=== PATIENT | male | born 1955 | race Caucasian/White ===

== ENCOUNTER 2017-04-09 18:31 | Inpatient (IN) | payer SELFPAY ==
[~2017-04-09] VITALS: Ht 188 cm; Wt 146.6 kg
[2017-04-09] MEDS ORDERED: ACETAMINOPHEN 500 MG TAB PO STA (18:40)
[2017-04-09] MEDS ORDERED: SODIUM CHLORIDE 0.9% 1000ML 2,000 ML IV STA (18:40)
[2017-04-09] MEDS ORDERED: SODIUM CHLORIDE 0.9% 1000ML 1,000 ML IV STA (18:40)
[2017-04-09] MEDS ORDERED: PIPERACILLIN/TAZOBACTAM 4.5 GM/100ML D5W IV STA (18:43)
[2017-04-09] MEDS ORDERED: LEVAQUIN 750MG / 150ML D5W IV STA (18:43)
--- NOTE | 2017-04-09 19:04 | DIAGNOSTIC IMAGING REPORT ---
CHEST ONE VIEW PORTABLE HISTORY: EVALUATE WEAKNESS COMPARISON: None. FINDINGS: Small bilateral pleural effusions. The heart is borderline enlarged. Perihilar interstitial and vascular thickening consistent with mild congestive change. No pneumothorax. IMPRESSION: Mild pulmonary vascular congestion and small bilateral pleural effusions. Electronically signed by: Kimo Rice M.D. 04/09/2017 7:03 PM Dictated Date/Time: 04/09/2017 7:02 PM
[2017-04-09 19:11] LABS: BASO % 0.2 %; BASO ABS # 0.03 K/uL (0-0.2); COMPLETE YES; EOS % 0.1 %; HEMATOCRIT 48.3 % (42-52); IG% 0.3 %; LYMPH % 4.6 %; LYMPH ABS # 0.92 K/uL (1.2-3.4); MEAN CELL VOLUME 85.2 fL (80-100); MEAN CORPUSCULAR HEMOGLOBIN 30.2 pg (25-34); MEAN CORPUSCULAR HGB CONC 35.4 g/dl (32-36); MEAN PLATELET VOLUME 13.5 fL (7.4-10.4); MONO % 4.7 %; NEUT % 90.1 %; PLATELET COUNT 180 K/uL (130-400); RED BLOOD COUNT 5.67 M/uL (4.7-6.1); WHITE BLOOD COUNT 19.91 K/uL (4.8-10.8)
[2017-04-09] MEDS ORDERED: CHOLESTEROL PO (19:24)
[2017-04-09] MEDS ORDERED: SYN200 PO (19:24)
[2017-04-09 19:27] LABS: INR 1.1 (0.9-1.1); PARTIAL THROMBOPLASTIN RATIO 1.1; PROTHROMBIN TIME (PATIENT) 11.8 SECONDS (9.0-12.0)
[2017-04-09 19:32] LABS: AST/SGOT 7 U/L (15-37); BLOOD UREA NITROGEN 14 mg/dl (7-18); CARBON DIOXIDE 23 mmol/L (21-32); CHLORIDE 100 mmol/L (98-107); GLUCOSE 175 mg/dl (70-99); MAGNESIUM 1.4 mg/dl (1.8-2.4); POTASSIUM 3.4 mmol/L (3.5-5.1); SODIUM 136 mmol/L (136-145)
[2017-04-09 19:45] LABS: ALKALINE PHOSPHATASE 111 U/L (45-117); ALT/SGPT 21 U/L (12-78); CKMB/CK RATIO 0.8 (0-3.0)
--- NOTE | 2017-04-09 20:19 | DIAGNOSTIC IMAGING REPORT ---
ABDOMEN AND PELVIS CT WITHOUT CONTRAST CT DOSE: 1656.69 mGy.cm HISTORY: septic shock, left lower quadrant abdominal pain. TECHNIQUE: Multiaxial CT images of the abdomen and pelvis were performed without contrast. A dose lowering technique was utilized adhering to the principles of ALARA. COMPARISON STUDY: None. FINDINGS: A few bibasilar linear densities consistent with subsegmental atelectasis. No pneumoperitoneum. No pneumatosis. Old, healed bilateral rib fractures. Mild motion artifact. Hepatic steatosis. The unenhanced gallbladder, spleen, adrenal glands, and pancreas are unremarkable. No renal or ureteral stones. No hydronephrosis. No retroperitoneal lymphadenopathy. Normal bladder. Suboptimal evaluation for bowel pathology due to the lack of intravenous and oral contrast. However, there is no definite bowel wall thickening or obstruction. Normal appendix. A few mildly enlarged left pelvic sidewall/iliac lymph nodes. Dominant lymph node measures 2.4 x 1.2 cm. IMPRESSION: 1. Suboptimal evaluation for bowel pathology due to the lack of intravenous and oral contrast. However, there is no definite bowel wall thickening or obstruction. 2. Normal appendix. 3. No renal stones. No hydronephrosis. 4. A few mildly enlarged left iliac/pelvic sidewall lymph nodes. These are of uncertain clinical significance. Six-month follow-up can be performed to ensure stability. 5. Hepatic steatosis. Electronically signed by: Kimo Rice M.D. 04/09/2017 8:18 PM Dictated Date/Time: 04/09/2017 8:09 PM
[2017-04-09] MEDS ORDERED: ALUMINUM/MAGNESIUM/SIMETH (MAALOX MAX) 30 ML UDC PO PRN (21:00)
[2017-04-09] MEDS ORDERED: ONDANSETRON INJ 2 MG/ML 2 ML VIAL IV PRN (21:00)
[2017-04-09] MEDS ORDERED: LEVOFLOXACIN / D5W 750 MG in PREMIXED IN D5W 150 ML IV SCH (21:00)
[2017-04-09] MEDS ORDERED: HEPARIN SOD 5000 UNIT/0.5 ML CARP SQ SCH (21:00)
[2017-04-09] MEDS ORDERED: ZOLPIDEM TARTRATE 5 MG TAB PO PRN (21:00)
[2017-04-09] MEDS ORDERED: MAGNESIUM HYDROXIDE SUSP 30 ML UDC PO PRN (21:00)
[2017-04-09] MEDS ORDERED: POLYETHYLENE (MIRALAX) 17 GM PACK PO PRN (21:00)
--- NOTE | 2017-04-09 21:00 | History and Physical ---
History & Physical Date & Time of Service: Apr 09, 2017 at 21:00 Chief Complaint: Diaphoretic/Weakness Primary Care Physician: No Doctor, Assigned History of Present Illness Source: patient Mr Kelley is a 61 yo M who presents with fevers, chills, and feeling unwell. 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 He was doing a trip from [place] to the [facility] and has been on the road about 2 days. He noticed today he felt fevers and chills intermittently which concerned him. He was pulled over for poor driving and a blood alcohol level was negative, and he was brought to the ED. He has since been found to be hypotensive, SBP was in the 60s per EMS, and also to have a temp of 38.8C on arrival. He received multiple bags of IV fluids and his BP has improved. He had a mild LLQ abdominal pain so CT was performed but no evidence of diverticulitis was noted. He denies recent cough, headache, neck stiffness, diarrhea or pain with urination. He has dark, cracked heels, which he reports is due to the shoes he has been wearing the last 15 years. He reports he fixes the shoes when needed but they are overall dirty. He is also concerned because his dog who he travels with was placed into a kennel and he is scared he will not do well there. He feels somewhat better now. Past Medical/Surgical History Medical Problems: (1) Juan R's disease Status: Resolved (2) Hypercholesteremia Status: Chronic PSHx: None Family History No pertinent FHx. Social History Smoking Status: Never Smoker (stopped 25 y ago) Alcohol Use: none (stopped 20 years ago) Drug Use: cocaine Marital Status: single Housing status: other (is from [place], mainly spends his time driving) Occupational Status: employed Allergies Coded Allergies: No Known Allergies (Unverified , 04/09/17) Home Medications Scheduled Levothyroxine Sodium (Synthroid), 200 MCG PO QAM [Cholesterol], 1 TAB PO DAILY Review of Systems See HPI for pertinent positives & negatives. A total of 10 systems reviewed and were otherwise negative. Physical Exam Vital Signs Date Time Temp Pulse Resp B/P (MAP) Pulse Ox O2 Delivery O2 Flow Rate FiO2 04/09/17 20:58 99 16 103/68 94 Nasal Cannula 2.0 04/09/17 19:29 96 Nasal Cannula 2.0 04/09/17 19:07 2.0 04/09/17 18:50 38.8 108 20 106/55 88 Room Air 04/09/17 18:44 110 General Appearance: WD/WN, + mild distress, + obese Head: normocephalic, atraumatic Eyes: normal inspection, PERRL ENT: hearing grossly normal Neck: supple, no JVD Respiratory/Chest: chest non-tender, lungs clear, normal breath sounds, no respiratory distress Cardiovascular: regular rate, rhythm, no murmur, normal peripheral pulses Abdomen/GI: non tender, soft Back: no CVA tenderness, no muscle spasm Extremities/Musculoskelatal: no calf tenderness, no pedal edema, + pertinent finding (bilateral heels are cracked posteriorly and dark. no evidence of erythema or exudate. L leg is warmer than right with some erythema from foot to mid-acosta. L leg is relatively more swollen than R.) Skin: + pertinent finding (see above.) Diagnostics Laboratory Results Results Past 24 Hours Test 04/09/17 17:43 04/09/17 18:12 04/09/17 18:40 04/09/17 19:14 Range/Units Influenza Type A Antigen Neg for Influ A NEG Influenza Type B Antigen Neg for Influ B NEG White Blood Count 19.91 4.8-10.8 K/uL Red Blood Count 5.67 4.7-6.1 M/uL Hemoglobin 17.1 14.0-18.0 g/dL Hematocrit 48.3 42-52 % Mean Corpuscular Volume 85.2 80-100 fL Mean Corpuscular Hemoglobin 30.2 25-34 pg Mean Corpuscular Hemoglobin Concent 35.4 32-36 g/dl Platelet Count 180 130-400 K/uL Mean Platelet Volume 13.5 7.4-10.4 fL Neutrophils (%) (Auto) 90.1 % Lymphocytes (%) (Auto) 4.6 % Monocytes (%) (Auto) 4.7 % Eosinophils (%) (Auto) 0.1 % Basophils (%) (Auto) 0.2 % Neutrophils # (Auto) 17.96 1.4-6.5 K/uL Lymphocytes # (Auto) 0.92 1.2-3.4 K/uL Monocytes # (Auto) 0.93 0.11-0.59 K/uL Eosinophils # (Auto) 0.01 0-0.5 K/uL Basophils # (Auto) 0.03 0-0.2 K/uL RDW Standard Deviation 41.8 36.4-46.3 fL RDW Coefficient of Variation 13.6 11.5-14.5 % Immature Granulocyte % (Auto) 0.3 % Immature Granulocyte # (Auto) 0.06 0.00-0.02 K/uL Prothrombin Time 11.8 9.0-12.0 SECONDS Prothromb Time International Ratio 1.1 0.9-1.1 Activated Partial Thromboplast Time 29.0 21.0-31.0 SECONDS Partial Thromboplastin Ratio 1.1 Sodium Level 136 136-145 mmol/L Potassium Level 3.4 3.5-5.1 mmol/L Chloride Level 100 98-107 mmol/L Carbon Dioxide Level 23 21-32 mmol/L Anion Gap 13.0 3-11 mmol/L Blood Urea Nitrogen 14 7-18 mg/dl Creatinine 1.40 0.60-1.40 mg/dl Est Creatinine Clear Calc Drug Dose 81.5 ml/min Estimated GFR () 62.0 Estimated GFR (Non- 53.5 BUN/Creatinine Ratio 10.0 10-20 Random Glucose 175 70-99 mg/dl Calcium Level 9.0 8.5-10.1 mg/dl Magnesium Level 1.4 1.8-2.4 mg/dl Total Bilirubin 0.8 0.2-1 mg/dl Direct Bilirubin 0.1 0-0.2 mg/dl Aspartate Amino Transf (AST/SGOT) 7 15-37 U/L Alanine Aminotransferase (ALT/SGPT) 21 12-78 U/L Alkaline Phosphatase 111 45-117 U/L Total Creatine Kinase 85 39-308 U/L Creatine Kinase MB 0.7 0.5-3.6 ng/ml Creatine Kinase MB Ratio 0.8 0-3.0 Troponin I < 0.015 0-0.045 ng/ml Total Protein 8.4 6.4-8.2 gm/dl Albumin 3.9 3.4-5.0 gm/dl Lipase 98 73-393 U/L Thyroid Stimulating Hormone (TSH) 1.590 0.300-4.500 uIu/ml Bedside Lactic Acid Venous 3.01 0.90-1.70 mmol/L Microbiology Results 04/09/17 Blood Culture, Received Pending 04/09/17 Blood Culture, Received Pending 04/09/17 Urine Culture, Ordered Pending Diagnostic Radiology CXR IMPRESSION: Mild pulmonary vascular congestion and small bilateral pleural effusions. CT A/P IMPRESSION: 1. Suboptimal evaluation for bowel pathology due to the lack of intravenous and oral contrast. However, there is no definite bowel wall thickening or obstruction. 2. Normal appendix. 3. No renal stones. No hydronephrosis. 4. A few mildly enlarged left iliac/pelvic sidewall lymph nodes. These are of uncertain clinical significance. Six-month follow-up can be performed to ensure stability. 5. Hepatic steatosis. EKG Sinus tachycardia Otherwise normal ECG No previous ECGs available Impression Assessment and Plan 61 yo M presents with sepsis - likely source is L leg cellulitis L leg cellulitis & edema - Received Levaquin in ED, will continue w/Levaquin and Zosyn - Wound care consult for heel management - US ordered in ED to evaluate for blood clots Sepsis from cellulitis - Lactate 3 on arrival, repeat within 6 hours - Received multiple fluid boluses and broad spectrum abx - Urine / blood cultures obtained prior to Abx - Continue on Vanc and Zosyn Bilateral heel wounds - Wound care Risk factors - Will check an HbA1c due to high random Glu Added: Presumed NAFSIA Pt has a massive neck circumference and was snoring as I entered the room - needs NAFISA workup which is especially important as 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 Wilkins during the history and exam. I discussed the case with the resident and agree with the findings and plan as documented in the note. 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 - he does not drink ETOH - has likely had intermittent fevers for 2- 3 days and presented to ER with a low BP and high fever - responded to antibiotics - appears to have cracking and open skin on heals and mild associated cellulitis - no other obvious source for infection OE AAO x 3 S1,2 R CTAB NT, ND + skin cracking and open areas on heals - minimal cellulitis R > L P: Sepsis - likely skin source - broad spectrum coverage pending culture results Glu high - pt overweight and with sedentary occupation - will check HbA1C Pt has a massive neck circumference and was snoring as I entered the room - needs NAFISA workup which is especially important as 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 Y/N: Yes Risk Level: Moderate Resident Tracking Resident Involvement: Resident Care Provided Care Provided: Adult Hospital Medicine
[2017-04-09 21:04] VITALS: BMI 39.6
--- NOTE | 2017-04-09 21:09 | EMERGENCY ROOM VISIT NOTE ---
History Report prepared by Scribe: Yaritza De Leon Under the Supervision of: Dr. Walker Marie M.D. First contact with patient: 18:34 Stated Complaint: DIAPHORETIC/WEAKNESS History of Present Illness The patient is a 61 year old male who presents to the Emergency Room with complaints of worsening weakness for the past day. 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 He was pulled over by [facility] on [address] earlier this evening after he was found "driving erratically". PSP states the patient was diaphoretic and "staggering" in the field. A breathalyzer was negative for alcohol and EMS was called. The patients temperature was 102.5 degrees in the field and he was hypotensive. He was given 600 mL of fluid as well as Oxygen. He states he does feel better here in the ED. He admits to recent chills and LLQ abdominal pain. He reports his grandson was sick recently, but states "he's been sick for a while". The patient denies LOC, headache, cough, visual changes, neck pain, chest pain, breathing difficulties, nausea, vomiting, back pain, melena, hematochezia, urinary symptoms, numbness, lymphadenopathy, rash, or other complaints. 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 Source of History: patient Onset: past day Position: other (global) Timing: worsening Associated Symptoms: + fevers, + chills, + diaphoresis, + abdominal pain Review of Systems See HPI for pertinent positives and negatives. A total of ten systems were reviewed and were otherwise negative. Past Medical & Surgical Medical Problems: (1) Cellulitis of left foot (2) Cellulitis of left foot (3) Juan R's disease (4) Hypercholesteremia Social History Smokeless Tobacco Use: No Alcohol Use: occasionally Drug Use: none Marital Status: Housing Status: lives with family Occupation Status: employed Current/Historical Medications Scheduled Levothyroxine Sodium (Synthroid), 200 MCG PO QAM [Cholesterol], 1 TAB PO DAILY Allergies Coded Allergies: No Known Allergies (Unverified , 04/09/17) Physical Exam Vital Signs Date Time Temp Pulse Resp B/P (MAP) Pulse Ox O2 Delivery O2 Flow Rate FiO2 04/09/17 21:04 Nasal Cannula 2.0 04/09/17 20:58 99 16 103/68 94 Nasal Cannula 2.0 04/09/17 19:29 96 Nasal Cannula 2.0 04/09/17 19:07 2.0 04/09/17 18:50 38.8 108 20 106/55 88 Room Air 04/09/17 18:44 110 Physical Exam GENERAL: Awake, alert, tachycardic, ill-appearing, in no distress HENT: Normocephalic, atraumatic. Oropharynx unremarkable. EYES: Normal conjunctiva. Sclera non-icteric. NECK: Supple. No nuchal rigidity. FROM. No JVD. RESPIRATORY: Clear to auscultation. CARDIAC: Tachycardic heart rate, normal rhythm. Extremities warm and well perfused. Pulses equal. ABDOMEN: Soft, non-distended. LLQ tenderness to palpation. No rebound or guarding. No masses. RECTAL: Deferred. MUSCULOSKELETAL: Chest examination reveals no tenderness. The back is symmetrical on inspection without obvious abnormality. There is no CVA tenderness to palpation. No joint edema. LOWER EXTREMITIES: Calves are equal size bilaterally and non-tender. Chronic venous discoloration, warmth and redness in both LE. Dry cracked skin on bilateral heels. NEURO: Normal sensorium. No sensory or motor deficits noted. SKIN: No rash or jaundice noted. Medical Decision & Procedures ER Provider Diagnostic Interpretation: Radiology results as stated below per my review and radiologist interpretation: CHEST ONE VIEW PORTABLE HISTORY: EVALUATE WEAKNESS COMPARISON: None. FINDINGS: Small bilateral pleural effusions. The heart is borderline enlarged. Perihilar interstitial and vascular thickening consistent with mild congestive change. No pneumothorax. IMPRESSION: Mild pulmonary vascular congestion and small bilateral pleural effusions. Electronically signed by: Kimo Rice M.D. 04/09/2017 7:03 PM [address]OMEN AND PELVIS CT WITHOUT CONTRAST CT DOSE: 1656.69 mGy.cm HISTORY: septic shock, left lower quadrant abdominal pain. TECHNIQUE: Multiaxial CT images of the abdomen and pelvis were performed without contrast. A dose lowering technique was utilized adhering to the principles of ALARA. COMPARISON STUDY: None. FINDINGS: A few bibasilar linear densities consistent with subsegmental atelectasis. No pneumoperitoneum. No pneumatosis. Old, healed bilateral rib fractures. Mild motion artifact. Hepatic steatosis. The unenhanced gallbladder, spleen, adrenal glands, and pancreas are unremarkable. No renal or ureteral stones. No hydronephrosis. No retroperitoneal lymphadenopathy. Normal bladder. Suboptimal evaluation for bowel pathology due to the lack of intravenous and oral contrast. However, there is no definite bowel wall thickening or obstruction. Normal appendix. A few mildly enlarged left pelvic sidewall/iliac lymph nodes. Dominant lymph node measures 2.4 x 1.2 cm. IMPRESSION: 1. Suboptimal evaluation for bowel pathology due to the lack of intravenous and oral contrast. However, there is no definite bowel wall thickening or obstruction. 2. Normal appendix. 3. No renal stones. No hydronephrosis. 4. A few mildly enlarged left iliac/pelvic sidewall lymph nodes. These are of uncertain clinical significance. Six-month follow-up can be performed to ensure stability. 5. Hepatic steatosis. Electronically signed by: Kimo Rice M.D. 04/09/2017 8:18 PM Laboratory Results 04/09/17 18:12 Red Blood Count 5.67, Mean Corpuscular Volume 85.2, Mean Corpuscular Hemoglobin 30.2, Mean Corpuscular Hemoglobin Concent 35.4, Mean Platelet Volume 13.5, Neutrophils (%) (Auto) 90.1, Lymphocytes (%) (Auto) 4.6, Monocytes (%) (Auto) 4.7, Eosinophils (%) (Auto) 0.1, Basophils (%) (Auto) 0.2, Neutrophils # (Auto) 17.96, Lymphocytes # (Auto) 0.92, Monocytes # (Auto) 0.93, Eosinophils # (Auto) 0.01, Basophils # (Auto) 0.03 04/09/17 18:12 Test 04/09/17 17:43 04/09/17 18:12 04/09/17 19:14 04/09/17 19:25 Influenza Type A Antigen Neg for Influ A (NEG) Influenza Type B Antigen Neg for Influ B (NEG) White Blood Count 19.91 K/uL (4.8-10.8) Red Blood Count 5.67 M/uL (4.7-6.1) Hemoglobin 17.1 g/dL (14.0-18.0) Hematocrit 48.3 % (42-52) Mean Corpuscular Volume 85.2 fL (80-100) Mean Corpuscular Hemoglobin 30.2 pg (25-34) Mean Corpuscular Hemoglobin Concent 35.4 g/dl (32-36) Platelet Count 180 K/uL (130-400) Mean Platelet Volume 13.5 fL (7.4-10.4) Neutrophils (%) (Auto) 90.1 % Lymphocytes (%) (Auto) 4.6 % Monocytes (%) (Auto) 4.7 % Eosinophils (%) (Auto) 0.1 % Basophils (%) (Auto) 0.2 % Neutrophils # (Auto) 17.96 K/uL (1.4-6.5) Lymphocytes # (Auto) 0.92 K/uL (1.2-3.4) Monocytes # (Auto) 0.93 K/uL (0.11-0.59) Eosinophils # (Auto) 0.01 K/uL (0-0.5) Basophils # (Auto) 0.03 K/uL (0-0.2) RDW Standard Deviation 41.8 fL (36.4-46.3) RDW Coefficient of Variation 13.6 % (11.5-14.5) Immature Granulocyte % (Auto) 0.3 % Immature Granulocyte # (Auto) 0.06 K/uL (0.00-0.02) Prothrombin Time 11.8 SECONDS (9.0-12.0) Prothromb Time International Ratio 1.1 (0.9-1.1) Activated Partial Thromboplast Time 29.0 SECONDS (21.0-31.0) Partial Thromboplastin Ratio 1.1 Anion Gap 13.0 mmol/L (3-11) Est Creatinine Clear Calc Drug Dose 81.5 ml/min Estimated GFR () 62.0 Estimated GFR (Non- 53.5 BUN/Creatinine Ratio 10.0 (10-20) Calcium Level 9.0 mg/dl (8.5-10.1) Magnesium Level 1.4 mg/dl (1.8-2.4) Total Bilirubin 0.8 mg/dl (0.2-1) Direct Bilirubin 0.1 mg/dl (0-0.2) Aspartate Amino Transf (AST/SGOT) 7 U/L (15-37) Alanine Aminotransferase (ALT/SGPT) 21 U/L (12-78) Alkaline Phosphatase 111 U/L (45-117) Total Creatine Kinase 85 U/L (39-308) Creatine Kinase MB 0.7 ng/ml (0.5-3.6) Creatine Kinase MB Ratio 0.8 (0-3.0) Troponin I < 0.015 ng/ml (0-0.045) Total Protein 8.4 gm/dl (6.4-8.2) Albumin 3.9 gm/dl (3.4-5.0) Lipase 98 U/L (73-393) Thyroid Stimulating Hormone (TSH) 1.590 uIu/ml (0.300-4.500) Bedside Lactic Acid Venous 3.01 mmol/L (0.90-1.70) Urine Color DK YELLOW Urine Appearance TURBID (CLEAR) Urine pH 5.5 (4.5-7.5) Urine Specific [place] 1.022 (1.000-1.030) Urine Protein 1+ (NEG) Urine Glucose (UA) NEG (NEG) Urine Ketones NEG (NEG) Urine Occult Blood NEG (NEG) Urine Nitrite NEG (NEG) Urine Bilirubin NEG (NEG) Urine Urobilinogen NEG (NEG) Urine Leukocyte Esterase NEG (NEG) Urine WBC (Auto) 1-5 /hpf (0-5) Urine RBC (Auto) 0-4 /hpf (0-4) Urine Hyaline Casts (Auto) 10-30 /lpf (0-5) Urine Epithelial Cells (Auto) >30 /lpf (0-5) Urine Bacteria (Auto) NEG (NEG) Laboratory results reviewed by me Medications Administered Medications (Trade) Dose Ordered Sig/Barry Route Start Time Stop Time Status Last Admin Dose Admin Sodium Chloride 1,000 ml @ 125 mls/hr Q8H STAT IV 04/09/17 18:40 04/09/17 23:52 DC 04/09/17 20:56 125 MLS/HR Sodium Chloride 2,000 ml @ 999 mls/hr Q2H1M STAT IV 04/09/17 18:40 04/09/17 20:40 DC 04/09/17 19:25 999 MLS/HR Acetaminophen (Tylenol Tab) 1,000 mg NOW STAT PO 04/09/17 18:40 04/09/17 18:43 DC 04/09/17 19:21 1,000 MG Levofloxacin (Levaquin / D5W) 750 mg NOW STAT IV 04/09/17 18:43 04/09/17 18:44 DC 04/09/17 19:35 750 MG Piperacillin Sod/ Tazobactam Sod (Zosyn Iv) 4.5 gm NOW STAT IV 04/09/17 18:43 04/09/17 18:44 DC 04/09/17 19:36 4.5 GM Acetaminophen (Tylenol Tab) 650 mg Q4H PRN PO 04/09/17 21:00 05/09/17 20:59 04/10/17 02:30 650 MG Potassium Chloride (Klor-Con M10) 40 meq NOW STAT PO 04/09/17 21:12 04/09/17 21:13 DC 04/09/17 22:08 40 MEQ ECG Indication: weakness Rate (beats per minute): 102 Rhythm: sinus tachycardia Findings: nonspecific-ST abn, no acute ischemic change, no ectopy ED Course 1838: The patient was evaluated in room C7. A complete history and physical exam was performed. 1839: Tylenol 1000 mg PO, NSS 2000 ml @ 999 mls/hr IV, NSS 1000 ml @ 125 mls/hr IV. 1842: Zosyn 4.5 gm IV, Levaquin 750 mg IV. 1914: Nursing informed me the patients Lactate is 3. 1924: I reevaluated the patient. He is feeling well and resting comfortably. 1942: I reevaluated the patient. He is experiencing rigors and IV antibiotics are infusing. 2051: I discussed the patients case with Dr. Lopez, [facility] Hospitalist. The patient will be further evaluated. 2054: I reevaluated the patient. He is resting comfortably. I discussed my recommendation he remain in the hospital for further evaluation and management and he verbalized complete understanding and agreement. Medical Decision Triage Nursing notes reviewed. The patient's presentation and history were concerning for fever, altered mental status, hypotension, hypoxia. Etiologies such as sepsis, metabolic, infection, hypo/hyperglycemia, electrolyte abnormalities, cardiac sources, intracerebral event, toxicologic, neurologic, as well as others were entertained. The patient was evaluated upon arrival. He improved with IV fluids given prehospital. He was febrile, tachycardic, and hypotensive. This was concerning for sepsis. He did have some erythema to his legs and some warmth. He had some cough as well. Chest x-ray was performed. The patient had tenderness in the left lower quadrant of his abdomen and therefore CT imaging was ordered. He was treated with normal saline boluses and also given IV Levaquin and IV Zosyn for empiric coverage. CT imaging of the abdomen and pelvis did not reveal any obvious pathology. Chest x-ray showed some minor congestion but no focal infiltrates. The patient has a leukocytosis on CBC. His lactate is elevated. Flu testing is negative. Urinalysis is pending at this time. Ultrasound imaging of the lower extremities was ordered. The patient was reassessed frequently. His vital signs were improving. Mental status was improved. Consultation was made with internal medicine for further management of this presumed sepsis. Medication Reconcilliation Current Medication List: was personally reviewed by me Consults Time Called: 2013 Consulting Physician: Dr. Lopez [facility] Hospitalist Returned Call: [phone] I discussed the patients case with Dr. Lopez [facility] Hospitalist. The patient will be further evaluated. Impression Primary Impression: Sepsis Scribe Attestation The scribe's documentation has been prepared under my direction and personally reviewed by me in its entirety. I confirm that the note above accurately reflects all work, treatment, procedures, and medical decision making performed by me. Departure Information Dispostion Being Evaluated By Hospitalist
[2017-04-09] MEDS ORDERED: POTASSIUM CHLORIDE 10 MEQ TABCR PO STA (21:12)
[2017-04-09] MEDS ORDERED: VANCOMYCIN INJ 2,750 MG in SODIUM CHLORIDE 0.9% 500ML 500 ML IV STA (21:45)
[2017-04-09] MEDS ORDERED: VANCOMYCIN CONSULT ACTIVE PRN (22:00)
[2017-04-09] MEDS ORDERED: PIPERACILL/TAZOBAC CONSULT ACTIVE PRN (22:00)
[2017-04-09 22:48] LABS: MANUAL MICROSCOPIC REQUIRED? NO; REVIEW REQ? NO; URINE APPEARANCE TURBID (CLEAR); URINE BILIRUBIN NEG (NEG); URINE COLOR DK YELLOW; URINE EPITHELIAL CELL AUTO >30 /lpf (0-5); URINE NITRITE NEG (NEG); URINE PH 5.5 (4.5-7.5); URINE SPECIFIC GRAVITY 1.022 (1.000-1.030); UROBILINOGEN NEG (NEG)
[2017-04-09 23:05] VITALS: BP 132/77; PULSE 90; TEMP 37.3; O2SAT 96
[2017-04-10] VITALS (9 sets, daily range): BP systolic 93–120; BP diastolic 51–71; PULSE 73–91; TEMP 36.6–37.9; O2SAT 93–95; BMI 41.0
[2017-04-10] MEDS: PIPERACILL/TAZOBAC IV 4.5 GM in DEXTROSE 5% 100ML 100 ML IV SCH ×4 (00:38→23:31)
[2017-04-10] MEDS: NSS + 20MEQ KCL 1000ML 1,000 ML IV SCH ×3 (00:39→15:38)
[2017-04-10] MEDS: ACETAMINOPHEN 325 MG TAB PO PRN ×4 (02:30→23:30)
[2017-04-10] MEDS: LEVOTHYROXINE 200 MCG TAB PO SCH (05:54)
[2017-04-10] MEDS ORDERED: INFLUENZA ADMINISTRATION CHARGE ONE (06:15)
[2017-04-10] MEDS ORDERED: INFLUENZA VIRUS QUAD VACCINE 0.5 ML SYR IM. ONE (06:15)
[2017-04-10] MEDS ORDERED: MAGNESIUM SULFATE 1GM / D5W 1 GM in PREMIXED IN D5W 100 ML IV ONE (07:30)
[2017-04-10] MEDS: HEPARIN SOD 5000 UNIT/0.5 ML CARP SQ SCH ×2 (07:41→20:50)
[2017-04-10 07:44] LABS: BASO % 0.1 %; BASO ABS # 0.02 K/uL (0-0.2); COMPLETE YES; HEMATOCRIT 43.8 % (42-52); IG% 0.4 %; LYMPH ABS # 0.94 K/uL (1.2-3.4); MEAN CELL VOLUME 86.9 fL (80-100); MEAN CORPUSCULAR HEMOGLOBIN 28.8 pg (25-34); MEAN CORPUSCULAR HGB CONC 33.1 g/dl (32-36); MEAN PLATELET VOLUME 12.7 fL (7.4-10.4); MONO % 4.2 %; NEUT % 89.3 %; PLATELET COUNT 139 K/uL (130-400); RED BLOOD COUNT 5.04 M/uL (4.7-6.1); WHITE BLOOD COUNT 15.75 K/uL (4.8-10.8)
[2017-04-10 08:11] LABS: ESTIMATED AVERAGE GLUCOSE 157 mg/dl; HA1C FLAG Normal (Normal)
[2017-04-10 08:34] LABS: BUN/CREATININE RATIO 8.3 (10-20); CALCIUM 7.7 mg/dl (8.5-10.1); CREATININE 1.6 mg/dl (0.60-1.40)
--- NOTE | 2017-04-10 08:39 | DIAGNOSTIC IMAGING REPORT ---
ULTRASOUND BILATERAL LOWER EXTREMITY VENOUS CLINICAL HISTORY: Lower extremity edema. COMPARISON STUDY: No priors. TECHNIQUE: Real-time, grayscale, and color Doppler sonography of the deep veins of the right and left lower extremity was performed from the inguinal crease to the calf. Compression and augmentation were utilized. FINDINGS: There is no sonographic evidence of deep venous thrombosis identified in the right or left lower extremity. The common femoral, superficial femoral, and popliteal veins are patent and normally compressible bilaterally. The greater saphenous vein and the profunda femoris vein at the junction with the common femoral vein are clear in both legs. The visualized calf veins are patent bilaterally. A prominent left inguinal lymph node is incidentally noted and may be on a reactive basis. IMPRESSION: There is no sonographic evidence of deep venous thrombosis identified in the right or left lower extremity. Electronically signed by: Bijan Miranda M.D. 04/10/2017 8:38 AM Dictated Date/Time: 04/10/2017 8:37 AM
--- NOTE | 2017-04-10 09:47 | Pharmacy Progress Note ---
Pharmacy Abx Initial Consult Date of Service Apr 10, 2017. Pharmacy Dosing Scope Date of Consult: 04/10/17 Consultation requested by: Dr. Wilkins Pharmacy is consulted to initiate VANCOMYCIN and ZOSYN IV therapy, order appropriate labs and adjust drug dose/frequency. Subjective The patient is a 61 year old male admitted on Apr 09, 2017 at 21:16 for fever, chills, diaphoresis, abdominal pain and hypotension. Patient was felt to be septic secondary to L leg cellulitis. Objective Height (Feet): 6 Height (Inches): 2.00 Weight (Kilograms): 145.000 Vital Signs (Past 12Hrs) Vital Signs Past 12 Hours Date Time Temp Pulse Resp B/P (MAP) Pulse Ox O2 Delivery O2 Flow Rate FiO2 04/10/17 08:00 94 Nasal Cannula 2.0 04/10/17 07:49 37.8 82 20 95/58 (70) 93 Nasal Cannula 1.0 04/10/17 04:55 37.8 91 21 107/63 (78) 93 Nasal Cannula 2.0 04/10/17 04:00 Nasal Cannula 2.0 04/09/17 23:05 37.3 90 24 132/77 (95) 96 Nasal Cannula 2.0 04/09/17 22:34 106/64 Lab Results (24Hrs) Laboratory Tests (24 Hours) Test 04/09/17 18:12 04/09/17 23:42 04/10/17 07:24 Total Creatine Kinase 85 U/L (39-308) Lactic Acid Level 2.0 mmol/L (0.4-2.0) White Blood Count 15.75 K/uL (4.8-10.8) H Red Blood Count 5.04 M/uL (4.7-6.1) Hemoglobin 14.5 g/dL (14.0-18.0) Hematocrit 43.8 % (42-52) Mean Corpuscular Volume 86.9 fL (80-100) Mean Corpuscular Hemoglobin 28.8 pg (25-34) Mean Corpuscular Hemoglobin Concent 33.1 g/dl (32-36) Platelet Count 139 K/uL (130-400) Mean Platelet Volume 12.7 fL (7.4-10.4) H Neutrophils (%) (Auto) 89.3 % Lymphocytes (%) (Auto) 6.0 % Monocytes (%) (Auto) 4.2 % Eosinophils (%) (Auto) 0.0 % Basophils (%) (Auto) 0.1 % Neutrophils # (Auto) 14.07 K/uL (1.4-6.5) H Lymphocytes # (Auto) 0.94 K/uL (1.2-3.4) L Monocytes # (Auto) 0.66 K/uL (0.11-0.59) H Eosinophils # (Auto) 0.00 K/uL (0-0.5) Basophils # (Auto) 0.02 K/uL (0-0.2) Micro Results Date/Time Source Procedure Growth Status 04/10/17 09:23 Blood Blood Culture Pending Ordered 04/10/17 09:23 Blood Blood Culture Pending Ordered 04/09/17 19:32 Blood Blood Culture - Preliminary Gram Positive Cocci Resulted 04/09/17 19:28 Blood Blood Culture Pending Received 04/09/17 19:25 Urine , Clean Catch Urine Culture Pending Received Assessment & Plan Assessment * 61 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 Urine output not being documented / followed. He is being hydrated w/ NS + 20KCl @125cc/hr. * SBP 95-107 this AM, HR 80-90's, Tmax 38.8 in last 24 hours, WBC trending down Plan Vancomycin IV * Loading dose: 2750 mg x 1 (19.6 mg/kg) * Maintenance dose: 1750 mg IV (12 mg/kg) every 12 hours * Goal trough level for sepsis : 15 to 20 mcg/mL initially * Trough/Random level ordered for 04/11/17 w/ 4th maintenance dose * P'kinetic estimates: Vd 0.58-0.6L/kg, half-life ~ 10-12 hours Piperacillin/tazobactam * 4.5 g bolus administered over 30 minutes, then 4.5 g IV extended infusion every 8 hours for CrCl greater than 20 mL/min * Aggressive dosing selected due to critically ill status/BMI 35 Pharmacy will continue to follow and will adjust dose/frequency as necessary. Thank you.
[2017-04-10] MEDS ORDERED: VANCOMYCIN INJ 2,000 MG in SODIUM CHLORIDE 0.9% 500ML 500 ML IV SCH (10:00)
[2017-04-10] MEDS: VANCOMYCIN INJ 1,750 MG in SODIUM CHLORIDE 0.9% 500ML 500 ML IV SCH ×2 (10:17→20:52)
[2017-04-10] MEDS: INSULIN ASPART 100 UNITS/ML 3 ML PEN SC SCH ×3 (11:00→20:45)
[2017-04-10] MEDS ORDERED: MAGNESIUM SULFATE 1GM / D5W 1 GM in PREMIXED IN D5W 100 ML IV STA (11:10)
--- NOTE | 2017-04-10 11:16 | Medical Student: [facility] ---
Med Student Progress Note Date of Service Apr 10, 2017. Subjective Pt evaluation today including: conversation w/ patient, physical exam, chart review, lab review, review of studies, review of inpatient medication list Pt notes that he still feels feverish, achy, weak. He notes a decreased appetite but did try to eat a little at breakfast. He has been in contact with family. Is concerned about his dog who is kenneled. Review of Systems Constitutional: + fever, + sweats, + weakness, No chills ENT: No hearing loss, No sore throat Respiratory: No cough, No sputum, No wheezing Cardiac: No chest pain, No palpitations Abdomen: No pain, No nausea, No vomiting, No diarrhea, No constipation Musculoskeletal: + swelling Male : No dysuria Endo: + fatigue Skin: No rash, No itch Objective Vital Signs Date Time Temp Pulse Resp B/P (MAP) Pulse Ox O2 Delivery O2 Flow Rate FiO2 04/10/17 08:00 94 Nasal Cannula 2.0 04/10/17 07:49 37.8 82 20 95/58 (70) 93 Nasal Cannula 1.0 04/10/17 04:55 37.8 91 21 107/63 (78) 93 Nasal Cannula 2.0 04/10/17 04:00 Nasal Cannula 2.0 04/09/17 23:05 37.3 90 24 132/77 (95) 96 Nasal Cannula 2.0 04/09/17 22:34 106/64 04/09/17 21:04 Nasal Cannula 2.0 04/09/17 20:58 99 16 103/68 94 Nasal Cannula 2.0 04/09/17 19:29 96 Nasal Cannula 2.0 04/09/17 19:07 2.0 04/09/17 18:50 38.8 108 20 106/55 88 Room Air 04/09/17 18:44 110 Physical Exam General Appearance: no apparent distress, + obese, + pertinent finding ( appears ill. ) ENT: hearing grossly normal, pharynx normal Neck: supple Respiratory/Chest: lungs clear, normal breath sounds, no respiratory distress Cardiovascular: regular rate, rhythm, no murmur Abdomen: normal bowel sounds, non tender, soft Extremities: non-tender, + pedal edema (2+ pedal edema), + pertinent finding Neurologic/Psychiatric: alert, normal mood/affect, oriented x 3 Skin: normal color, warm/dry, + pertinent finding (bandage on Right LE c/d/i. Left LE erythema ) Laboratory Results Last 24 Hours Test 04/09/17 17:43 04/09/17 18:12 04/09/17 19:14 04/09/17 19:25 Influenza Type A Antigen Neg for Influ A Influenza Type B Antigen Neg for Influ B White Blood Count 19.91 K/uL Red Blood Count 5.67 M/uL Hemoglobin 17.1 g/dL Hematocrit 48.3 % Mean Corpuscular Volume 85.2 fL Mean Corpuscular Hemoglobin 30.2 pg Mean Corpuscular Hemoglobin Concent 35.4 g/dl Platelet Count 180 K/uL Mean Platelet Volume 13.5 fL Neutrophils (%) (Auto) 90.1 % Lymphocytes (%) (Auto) 4.6 % Monocytes (%) (Auto) 4.7 % Eosinophils (%) (Auto) 0.1 % Basophils (%) (Auto) 0.2 % Neutrophils # (Auto) 17.96 K/uL Lymphocytes # (Auto) 0.92 K/uL Monocytes # (Auto) 0.93 K/uL Eosinophils # (Auto) 0.01 K/uL Basophils # (Auto) 0.03 K/uL RDW Standard Deviation 41.8 fL RDW Coefficient of Variation 13.6 % Immature Granulocyte % (Auto) 0.3 % Immature Granulocyte # (Auto) 0.06 K/uL Prothrombin Time 11.8 SECONDS Prothromb Time International Ratio 1.1 Activated Partial Thromboplast Time 29.0 SECONDS Partial Thromboplastin Ratio 1.1 Sodium Level 136 mmol/L Potassium Level 3.4 mmol/L Chloride Level 100 mmol/L Carbon Dioxide Level 23 mmol/L Anion Gap 13.0 mmol/L Blood Urea Nitrogen 14 mg/dl Creatinine 1.40 mg/dl Est Creatinine Clear Calc Drug Dose 81.5 ml/min Estimated GFR () 62.0 Estimated GFR (Non- 53.5 BUN/Creatinine Ratio 10.0 Random Glucose 175 mg/dl Calcium Level 9.0 mg/dl Magnesium Level 1.4 mg/dl Total Bilirubin 0.8 mg/dl Direct Bilirubin 0.1 mg/dl Aspartate Amino Transf (AST/SGOT) 7 U/L Alanine Aminotransferase (ALT/SGPT) 21 U/L Alkaline Phosphatase 111 U/L Total Creatine Kinase 85 U/L Creatine Kinase MB 0.7 ng/ml Creatine Kinase MB Ratio 0.8 Troponin I < 0.015 ng/ml Total Protein 8.4 gm/dl Albumin 3.9 gm/dl Lipase 98 U/L Thyroid Stimulating Hormone (TSH) 1.590 uIu/ml Bedside Lactic Acid Venous 3.01 mmol/L Urine Color DK YELLOW Urine Appearance TURBID Urine pH 5.5 Urine Specific [place] 1.022 Urine Protein 1+ Urine Glucose (UA) NEG Urine Ketones NEG Urine Occult Blood NEG Urine Nitrite NEG Urine Bilirubin NEG Urine Urobilinogen NEG Urine Leukocyte Esterase NEG Urine WBC (Auto) 1-5 /hpf Urine RBC (Auto) 0-4 /hpf Urine Hyaline Casts (Auto) 10-30 /lpf Urine Epithelial Cells (Auto) >30 /lpf Urine Bacteria (Auto) NEG Test 04/09/17 23:42 04/10/17 07:24 Lactic Acid Level 2.0 mmol/L White Blood Count 15.75 K/uL Red Blood Count 5.04 M/uL Hemoglobin 14.5 g/dL Hematocrit 43.8 % Mean Corpuscular Volume 86.9 fL Mean Corpuscular Hemoglobin 28.8 pg Mean Corpuscular Hemoglobin Concent 33.1 g/dl Platelet Count 139 K/uL Mean Platelet Volume 12.7 fL Neutrophils (%) (Auto) 89.3 % Lymphocytes (%) (Auto) 6.0 % Monocytes (%) (Auto) 4.2 % Eosinophils (%) (Auto) 0.0 % Basophils (%) (Auto) 0.1 % Neutrophils # (Auto) 14.07 K/uL Lymphocytes # (Auto) 0.94 K/uL Monocytes # (Auto) 0.66 K/uL Eosinophils # (Auto) 0.00 K/uL Basophils # (Auto) 0.02 K/uL RDW Standard Deviation 44.1 fL RDW Coefficient of Variation 13.9 % Immature Granulocyte % (Auto) 0.4 % Immature Granulocyte # (Auto) 0.06 K/uL Sodium Level 139 mmol/L Potassium Level 4.0 mmol/L Chloride Level 104 mmol/L Carbon Dioxide Level 28 mmol/L Anion Gap 7.0 mmol/L Blood Urea Nitrogen 13 mg/dl Creatinine 1.60 mg/dl Est Creatinine Clear Calc Drug Dose 72.7 ml/min Estimated GFR () 52.7 Estimated GFR (Non- 45.5 BUN/Creatinine Ratio 8.3 Random Glucose 138 mg/dl Estimated Average Glucose 157 mg/dl Hemoglobin A1c 7.1 % Calcium Level 7.7 mg/dl Magnesium Level 1.5 mg/dl Assessment and Plan Assessment and Plan: Pt is 61 yo male who presented to ED with sepsis and LE edema and cellulitis. Lower Leg Cellulitis and Edema -Started on Vanc and Zosyn - appreciate pharmacy recs -Blood culture growing Gram + Cocci - continue to follow -Urine Cx negative -Doppler of Bilateral LE negative for DV -Wound care for Right heal wound. -Continue to monitor L LE cellulitis. Severe Sepsis -WBC - 19.91 on admission, down to 15.75 today -RR - 20 on admission, 21 today. -HR - 110 on admission, down to 70s today -Temp: 38.8, down to 37.8 today -Lactic Acidosis on admission, not repeated -Source: LE cellulitis -Decrease IVF to 75 mls/hr Acute Hypoxia Respiratory Failure -New O2 requirement (NC) on admission -Will perform echo to rule out cardiac cause -Repeat CXR tmw AM ? JOE -Cr is high at 1.6. Baseline unknown. -Likely 2/2 to hypotension -PRP daily continue to trend Cr. S/S of Fluid Overload - bilateral LE 2+ pitting edema and Pleural Effusions present on CXR -CHF vs IVF overload -TTE to evaluate cardiac function HypoK - RESOLVED. HypoMg -Replete with 2g MgSulfate -Continue to follow lytes tomorrow. Hypothyroidism -Continue home dose of synthroid, 200 mcg daily -TSH WNL at 1.5 LEFT Iliac/Pelvic and inguinal Adenopathy -Identified via doppler and CT scan -Likely reactive to cellulitis -Recommend repeat CT scan in 3 months to determine stability. Hepatic Steatosis -Identified on CT scan -Encourage DM control, weight loss, statin therapy. -Discuss importance with pt. NAFISA -recommend outpt sleep study -d/w pt consequences. DVT: Heparin Dispo: Move to med/surg Resus status: Full Resuscitation Continued [facility] stay due to: fever Discharge planning: home
--- NOTE | 2017-04-10 11:54 | Family Medicine Progress Note ---
Progress Note Date of Service Apr 10, 2017. Subjective Pt evaluation today including: conversation w/ patient, physical exam, chart review, lab review, review of studies Voiding: no voiding problems Pt laying in bed during interview, complains of generalized weakness and feeling ill. Denies cough, SOB or chest pain. Reports moderate pain in his LT leg, which while chronically swollen, is more today than usual. Discussed more details from pt's SH, FH and PMH. 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 Brother, living, kidney dz s/p nephrectomy. Constitutional: + fever, + chills, + weakness Respiratory: No cough, No sputum Cardiovascular: No chest pain, No orthopnea Abdomen: No pain, No nausea, No vomiting, No diarrhea, No constipation Musculoskeletal: + swelling, + calf pain Male : No dysuria Objective Vital Signs Date Time Temp Pulse Resp B/P (MAP) Pulse Ox O2 Delivery O2 Flow Rate FiO2 04/10/17 20:00 Nasal Cannula 2.0 04/10/17 19:28 37.2 73 20 93/51 (65) 93 Nasal Cannula 2.0 98/63 (75) 04/10/17 16:00 Nasal Cannula 2.0 04/10/17 15:47 37.9 84 18 120/71 (87) 93 Nasal Cannula 2.0 04/10/17 12:00 94 Nasal Cannula 2.0 04/10/17 11:24 36.6 78 20 94/57 (69) 95 Nasal Cannula 2.0 04/10/17 08:00 94 Nasal Cannula 2.0 04/10/17 07:49 37.8 82 20 95/58 (70) 93 Nasal Cannula 1.0 04/10/17 04:55 37.8 91 21 107/63 (78) 93 Nasal Cannula 2.0 04/10/17 04:00 Nasal Cannula 2.0 04/09/17 23:05 37.3 90 24 132/77 (95) 96 Nasal Cannula 2.0 04/09/17 22:34 106/64 Physical Exam General Appearance: WD/WN, no apparent distress Eyes: normal inspection, EOMI Neck: no JVD, no carotid bruits Respiratory/Chest: lungs clear, normal breath sounds, no respiratory distress Cardiovascular: regular rate, rhythm, no gallop, no JVD Abdomen: normal bowel sounds, non tender, soft Neurologic/Psychiatric: alert, normal mood/affect Skin: + pertinent finding (broken skin at heels b/l, toe fungus of all nails visible, erythema and warmth of LE b/l.) Assessment and Plan 61M admitted for meeting sepsis criteria, sudden onset of fever and chillls while en route to [facility] from [place], on the road for 2 days. 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 Weakness, brought to ED in ambulance. 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 Brother, living, kidney dz s/p nephrectomy. Sepsis of unclear etiology with bacteremia, gram positive cocci Hypotension (per EMS SBP in 60s), fever (38.8 on admission), LAC+ was 3, now 2. BP improving, LAC trending down on second draw. Fever persists 37.8. Possibly from cellulitis or pneumonia (CXR shows b/l pleural effusions). Pt denies SOB, cough, diarrhea or sick contacts. Will control fever, hydrate, on Vanc and Zosyn. Acute respiratory failure CXR showed b/l pleural effusions. Pt denies cough or shortness of breath per se , although complains of weakness on admission. 88 on RA, 93 on 2L. Follow CXR, pulse ox, s/s. Ordered ECHO to assess for heart failure as cause. 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 Likely 2/2 sepsis and hypoperfusion of kidneys, on background of chronic uncontrolled diabetes. Sig FH for renal disease: Pt's brother has had a nephrectomy (reason unknown). Will follow Power Reactor Operator Renally dosed abx, adequately hydrate on IVF. LT Leg cellulitis, edema Per pt is a chronic issue. Apparently per admission note, pt has worn the same shoes for 10+ years. Pt applies a lotion (not rx, unknown) every other night, for dryness. Pain in lower LT leg is more than usual, per pt. Venous U/S performed today (04/17) neg for DVT, however positive for LT inguinal lymphadenopathy. Received Levaquin, Vanc and Zosyn in ED. On Vanc and Zosyn now. Breaks in skin, heels b/l Wound care consult in place. Bandage on LT heel in place. New diagnosis of DM II A1C 7.1 Per pt, last saw PCP in [place] 6 months ago, with no mention of diabetes. Will need diabetic education, ISS BSG checks. Pelvic adenopathy Per radiology, f/u repeat in 6 mos to follow. Likely reactive changes due to lower leg cellulitis. Hepatic steatosis Noted on abd CT. H/o alcohol use. LFT wnl Recommend dietary change, low fat. Onychomycosis In setting of diabetes, predisposition to chronic infections of the extremities and sig FH for leg amputation warrants attention, especially with PCP in [place]. Will order podiatry to see him here while inpatient. PPX: Heparin Code: FULL Dispo: Tele. Discussed with pt that it is not recommended for him to drive him and his truck back to [place] on his own for safety reasons. Discussed his coming to get him, pt verbalized understanding. Continued [facility] stay due to: fever, abnormal vital signs, multiple IV medications needed Discharge planning: home Resident Tracking Resident Involvement: Resident Care Provided Care Provided: Adult Hospital Medicine Reviewed: Pt Seen/Exam by Me History Resident Physician Supervision Note: I interviewed and examined the patient. Discussed with Dr. Arellano and agree with findings and plan as documented in the note. Any exceptions or clarifications are listed here: Pt spiking another fever when I saw him and not feeling well, BPs remain stable but low normal. Has pain in left leg, has chronic venous stasis and mild erythema but noticed leg becoming more red recently but cannot give me a timeline. No h/o hypoxia or pulmonary issues, no cardiac issues. Discussed new dx of DM, need for outpt f/u upon returning home after infection and sepsis treated and released from hospital. Pt reports he will never have a sleep study done despite snoring and obese neck- says "I don't believe in sleep apnea." BCxs with [facility] today. Vitals and tele reviewed Mild distress, obese Neck quite large, anicteric sclerae lungs diminished throughout, no wcr RRR, no wcr Abd +BS, soft, NT ND, obese Ext: left leg with +erythema, warmth, blanching erythema, 2+ pitting edema from ankle to prox tibia, small scab anterior tibia, left heel with significant crevices/cracks, no drainage, right leg no erythema, 1+ pitting edema, 1+ DP pulses bilat feet, +significant onychomycosis of all toenails, dressing on right heel in place and not removed as just placed by RN 61 yo male with a h/o hypothyroidism, obesity, and dyslipidemia, here with sepsis, GPC bacteremia, and left lower extremity cellulitis. Also found to have new dx of DMII. -continue broad spectrum abx and narrow down as able to -f/u on BCxs, repeat BCxs to ensure clearing, could be from cellulitis but could end up being contaminant -check ECHO for pulm edema and LE edema to assess for CHF -wound care and Podiatry recommended for foot care as this is likely source of current infection -CDE consult for new dx of DMII-start metformin on dc if renal function allows -JOE vs renal insufficiency in setting of CKD Stage III-unclear as no baseline labs-from [place], likely JOE from ATN, hypotension , follow PRP -recommend sleep study for NAFISA but pt declines-can f/u with PCP Proph-heparin SQ Documented By: Barb Booth
[2017-04-11] VITALS (7 sets, daily range): BP systolic 99–131; BP diastolic 67–79; PULSE 70–93; TEMP 36.6–37.7; O2SAT 91–96; Ht 188 cm; Wt 146.6 kg
[2017-04-11] MEDS: LEVOTHYROXINE 200 MCG TAB PO SCH (06:31)
[2017-04-11] MEDS: ACETAMINOPHEN 325 MG TAB PO PRN ×2 (06:39→16:42)
[2017-04-11] MEDS: INSULIN ASPART 100 UNITS/ML 3 ML PEN SC SCH ×4 (07:00→22:23)
--- NOTE | 2017-04-11 07:40 | DIAGNOSTIC IMAGING REPORT ---
CHEST 1 VW FRONT-NOT PORTABLE HISTORY: Follow-up pleural effusion. COMPARISON: Abdomen and pelvis CT 04/09/2017. FINDINGS: No pleural effusions. No pneumothorax. The heart is stable in size. No evidence for pulmonary edema. No new focal lung consolidations to suggest pneumonia. IMPRESSION: No pleural effusions. Electronically signed by: Kimo Rice M.D. 04/11/2017 7:38 AM Dictated Date/Time: 04/11/2017 7:37 AM
[2017-04-11] MEDS: PIPERACILL/TAZOBAC IV 4.5 GM in DEXTROSE 5% 100ML 100 ML IV SCH ×3 (07:44→23:52)
[2017-04-11] MEDS: HEPARIN SOD 5000 UNIT/0.5 ML CARP SQ SCH ×2 (07:45→22:29)
[2017-04-11 07:47] LABS: HEMATOCRIT 39.5 % (42-52); MEAN CELL VOLUME 86.8 fL (80-100); MEAN CORPUSCULAR HEMOGLOBIN 28.6 pg (25-34); MEAN CORPUSCULAR HGB CONC 32.9 g/dl (32-36); MEAN PLATELET VOLUME 12.6 fL (7.4-10.4); PLATELET COUNT 130 K/uL (130-400); RED BLOOD COUNT 4.55 M/uL (4.7-6.1); WHITE BLOOD COUNT 12.32 K/uL (4.8-10.8)
[2017-04-11 07:48] LABS: BASO % 0.2 %; BASO ABS # 0.03 K/uL (0-0.2); COMPLETE YES; DOHLE BODIES 1+; EOS % 0.2 %; IG% 0.2 %; LYMPH % 9.7 %; MONO % 5.3 %; NEUT % 84.4 %; PLT ESTIMATE NORMAL; VACUOLIZATION 1+
[2017-04-11 07:56] LABS: BUN/CREATININE RATIO 8.9 (10-20); CALCIUM 8.1 mg/dl (8.5-10.1); CREATININE 1.6 mg/dl (0.60-1.40)
[2017-04-11 07:59] LABS: CHOLESTEROL/HDL RATIO 7.7
[2017-04-11] MEDS ORDERED: PERFLUTREN LIPID MICROSPHERE (DEFINITY) IV ONE (09:20)
[2017-04-11] MEDS: OXYCODONE/ACETAMINOPHEN 5-325 TAB PO PRN ×2 (10:53→16:41)
[2017-04-11] MEDS: VANCOMYCIN INJ 1,750 MG in SODIUM CHLORIDE 0.9% 500ML 500 ML IV SCH ×2 (10:53→22:23)
--- NOTE | 2017-04-11 14:47 | Medical Student: [facility] ---
Med Student Progress Note Date of Service Apr 11, 2017. Subjective Pt evaluation today including: conversation w/ patient, physical exam, chart review, lab review, review of studies Pt continues to spike fevers. Notes that he feels minimally better. His left leg is more painful today. Remains lethargic. Review of Systems Constitutional: + fever, + chills, + sweats Respiratory: No cough, No sputum, No wheezing, No shortness of breath Cardiac: No chest pain, No palpitations Abdomen: No pain, No nausea, No vomiting, No diarrhea, No constipation Male : No dysuria, No urinary frequency Skin: + rash (painful left LE redness) Objective Vital Signs Date Time Temp Pulse Resp B/P (MAP) Pulse Ox O2 Delivery O2 Flow Rate FiO2 04/11/17 12:01 94 Nasal Cannula 2.0 04/11/17 11:51 36.6 70 20 110/73 (85) 93 Nasal Cannula 2.0 04/11/17 08:00 94 Nasal Cannula 2.0 04/11/17 07:38 37.2 93 18 104/67 (79) 93 Nasal Cannula 2.0 93 04/11/17 04:05 37.1 75 18 99/67 (78) 93 Nasal Cannula 2.0 04/11/17 04:00 Nasal Cannula 2.0 04/10/17 23:59 Nasal Cannula 2.0 04/10/17 23:25 37.8 85 20 119/63 (81) 95 Nasal Cannula 2.0 04/10/17 20:00 Nasal Cannula 2.0 04/10/17 19:28 37.2 73 20 93/51 (65) 93 Nasal Cannula 2.0 98/63 (75) 04/10/17 16:00 Nasal Cannula 2.0 04/10/17 15:47 37.9 84 18 120/71 (87) 93 Nasal Cannula 2.0 Physical Exam General Appearance: no apparent distress, + obese Respiratory/Chest: lungs clear, normal breath sounds, no respiratory distress, no accessory muscle use Cardiovascular: regular rate, rhythm, no murmur (NSR on tele since admission) Abdomen: normal bowel sounds, non tender, soft Extremities: no pedal edema (1+ bilaterally), no calf tenderness, + inflammation (erythema Left LE. ) Neurologic/Psychiatric: alert, normal mood/affect, oriented x 3 Laboratory Results Last 24 Hours Test 04/10/17 16:31 04/10/17 20:44 04/11/17 07:03 04/11/17 07:07 Bedside Glucose 108 mg/dl 117 mg/dl 122 mg/dl White Blood Count 12.32 K/uL Red Blood Count 4.55 M/uL Hemoglobin 13.0 g/dL Hematocrit 39.5 % Mean Corpuscular Volume 86.8 fL Mean Corpuscular Hemoglobin 28.6 pg Mean Corpuscular Hemoglobin Concent 32.9 g/dl Platelet Count 130 K/uL Mean Platelet Volume 12.6 fL Neutrophils (%) (Auto) 84.4 % Lymphocytes (%) (Auto) 9.7 % Monocytes (%) (Auto) 5.3 % Eosinophils (%) (Auto) 0.2 % Basophils (%) (Auto) 0.2 % Neutrophils # (Auto) 10.39 K/uL Lymphocytes # (Auto) 1.20 K/uL Monocytes # (Auto) 0.65 K/uL Eosinophils # (Auto) 0.02 K/uL Basophils # (Auto) 0.03 K/uL RDW Standard Deviation 45.1 fL RDW Coefficient of Variation 14.2 % Immature Granulocyte % (Auto) 0.2 % Immature Granulocyte # (Auto) 0.03 K/uL Toxic Vacuolation 1+ Dohle Bodies 1+ Platelet Estimate NORMAL Sodium Level 138 mmol/L Potassium Level 4.0 mmol/L Chloride Level 105 mmol/L Carbon Dioxide Level 26 mmol/L Anion Gap 7.0 mmol/L Blood Urea Nitrogen 14 mg/dl Creatinine 1.60 mg/dl Est Creatinine Clear Calc Drug Dose 73.1 ml/min Estimated GFR () 52.7 Estimated GFR (Non- 45.5 BUN/Creatinine Ratio 8.9 Random Glucose 129 mg/dl Calcium Level 8.1 mg/dl Triglycerides Level 240 mg/dl Cholesterol Level 161 mg/dl HDL Cholesterol 21 mg/dl LDL Cholesterol, Calculated 92 mg/dl VLDL Cholesterol, Calculated 48 mg/dl Cholesterol/HDL Ratio 7.7 Test 04/11/17 12:19 Bedside Glucose 147 mg/dl Assessment and Plan Assessment and Plan: Pt is 61 yo male who presented to ED with sepsis and LE edema and cellulitis. Lower Leg Cellulitis and Edema -Started on Vanc and Zosyn - appreciate pharmacy recs -Blood culture growing Group C Beta Strep. -Urine Cx likely contaminated with 3+ organisms. -Doppler of Bilateral LE negative for DVT -Wound care for Right heal wound. -Continue to monitor L LE cellulitis. -Given Oxycodone 5/325 q 4 hrs PRN pain Severe Sepsis -WBC - 19.91 on admission, down to 12.35 today -RR - 20 on admission, 20 today. -HR - 110 on admission, down to 70s today -Temp: 38.8, down to 37.8 today -Lactic Acidosis on admission, not repeated -Source: LE cellulitis -IVF dc'd Acute Hypoxia Respiratory Failure -New O2 requirement (NC) on admission -Will perform echo to rule out cardiac cause - await results. -Repeat CXR tmw AM ? JOE -Cr is high at 1.6. Baseline unknown. Continues at 1.6 -Likely 2/2 to hypotension -PRP daily continue to trend Cr. S/S of Fluid Overload - bilateral LE 2+ pitting edema and Pleural Effusions present on CXR -CHF vs IVF overload -TTE to evaluate cardiac function -IVF stopped. HypoK - RESOLVED. HypoMg -Replete with 2g MgSulfate -Continue to follow lytes tomorrow. Hypothyroidism -Continue home dose of synthroid, 200 mcg daily -TSH WNL at 1.5 LEFT Iliac/Pelvic and inguinal Adenopathy -Identified via doppler and CT scan -Likely reactive to cellulitis -Recommend repeat CT scan in 3 months to determine stability. Hepatic Steatosis -Identified on CT scan -Encourage DM control, weight loss, statin therapy. -Discuss importance with pt. NAFISA -recommend outpt sleep study -d/w pt consequences. DVT: Heparin Dispo: Move to med/surg Resus status: Full Resuscitation Continued [facility] stay due to: fever, abnormal vital signs, multiple IV medications needed Discharge planning: home
--- NOTE | 2017-04-11 15:05 | ECHOCARDIOGRAM REPORT ---
*NOTICE TO RECEIVING LIBERTARIAN AGENCY This information is strictly Confidential and protected under [place] law. [place] law prohibits you from making any further disclosure of this information unless further disclosure is expressly permitted by the written consent of the person to whom it pertains or is authorized by law. A general authorization for the release of medical or other information is not sufficient for this purpose. Hospital accepts no responsibility if the information is made available to any other person, INCLUDING THE PATIENT. Interpretation Summary * Name: MOHAN EDWARDS Study Date: 04/11/2017 07:36 AM BP: 99/67 mmHg * Patient Location: C.2T\S\S242\S\1 HR: 77 * : 1955 (M/d/yyyy) Gender: Male Height: 74 in * Age: 61 yrs Ethnicity: [place] Weight: 319 lb * Ordering Physician: Yenifer Arellano * Referring Physician: Self, Referred * Performed By: Dari Stout RCS * * Reason For Study: CHF * BSA: 2.7 m2 * Normal left ventricular systolic function. * Grade 2 left ventricular diastolic dysfunction. * Normal right ventricular systolic function. * Mild left atrial dilatation. * Mild aortic root and ascending aortic dilatation. * Trace aortic regurgitation. * Moderate aortic stenosis. * Trace tricuspid regurgitation. * The study was technically difficult. Procedure Details * A complete two-dimensional transthoracic echocardiogram was performed (2D, M-mode, Doppler and color flow Doppler). * The study was technically difficult. * There were technical limitations due to patient's supine positioning and body habitus Left Ventricle * The left ventricle is normal in size. * There is normal left ventricular wall thickness. * Left ventricular systolic function is normal. * Ejection Fraction = 60-65%. * Diastolic dysfunction, Grade II (pseudonormalization pattern). * The left ventricular wall motion is normal. Right Ventricle * The right ventricle is normal in size and function. Atria * The left atrium is mildly dilated. * Right atrial size is normal. * No ASD detected; PFO is not assessed. Mitral Valve * The mitral valve is normal. * There is no mitral valve stenosis. * There is no mitral regurgitation noted. Tricuspid Valve * The tricuspid valve is not well visualized, but is grossly normal. * There is no tricuspid stenosis. * There is trace tricuspid regurgitation. Aortic Valve * The aortic valve is not well visualized. * Moderate valvular aortic stenosis. * Aortic valve area was calculated at 1.4 cm\S\2 using the continuity equation. * Trace aortic regurgitation. Pulmonic Valve * The pulmonic valve is not well visualized. * The pulmonary valve is inadequately visualized, but the Doppler data is adequate for interpretation. * There is no pulmonic valvular stenosis. * There is no significant pulmonary regurgitation. Great Vessels * Mild aortic root dilatation. Pericardium/Pleural * There is no pericardial effusion. Great Vessels * The inferior vena cava was not well visualized. MMode 2D Measurements and Calculations IVSd 1.1 cm IVSs 1.6 cm LVIDd 5.4 cm LVIDs 3.5 cm LVPWd 1.1 cm LVPWs 1.6 cm IVS/LVPW 0.98 FS 35.2 % EDV(Teich) 139.4 ml ESV(Teich) 50.1 ml EF(Teich) 64.1 % EDV(cubed) 154.7 ml ESV(cubed) 42.0 ml EF(cubed) 72.8 % % IVS thick 42.4 % % LVPW thick 38.1 % LV mass(C)d 242.1 grams LV mass(C)dI 91.4 grams/m\S\2 LV mass(C)s 210.8 grams LV mass(C)sI 79.6 grams/m\S\2 SV(Teich) 89.3 ml SI(Teich) 33.7 ml/m\S\2 SV(cubed) 112.7 ml SI(cubed) 42.5 ml/m\S\2 Ao root diam 4.2 cm Ao root area 14.2 cm\S\2 ACS 1.7 cm LA dimension 4.1 cm asc Aorta Diam 4.1 cm LA/Ao 0.96 LVOT diam 2.3 cm LVOT area 4.0 cm\S\2 EDV(MOD-sp4) 217.8 ml ESV(MOD-sp4) 99.4 ml EF(MOD-sp4) 54.3 % EDV(MOD-sp2) 199.4 ml ESV(MOD-sp2) 83.3 ml EF(MOD-sp2) 58.2 % SV(MOD-sp4) 118.3 ml SI(MOD-sp4) 44.7 ml/m\S\2 SV(MOD-sp2) 116.1 ml SI(MOD-sp2) 43.8 ml/m\S\2 Doppler Measurements and Calculations MV E max ronnie 97.6 cm/sec MV A max ronnie 68.8 cm/sec MV E/A 1.4 MV P1/2t max ronnie 94.5 cm/sec MV P1/2t 73.9 msec MVA(P1/2t) 3.0 cm\S\2 MV dec slope 374.4 cm/sec\S\2 MV dec time 0.25 sec Ao V2 max 357.4 cm/sec Ao max PG 51.3 mmHg Ao max PG (full) 44.9 mmHg Ao V2 mean 256.6 cm/sec Ao mean PG 29.9 mmHg Ao mean PG (full) 26.6 mmHg Ao V2 VTI 81.4 cm MAU(I,A) 1.5 cm\S\2 MAU(I,D) 1.5 cm\S\2 MAU(V,A) 1.4 cm\S\2 MAU(V,D) 1.4 cm\S\2 AI max ronnie 383.1 cm/sec AI max PG 58.7 mmHg AI dec slope 264.7 cm/sec\S\2 AI P1/2t 423.8 msec LV V1 max PG 6.4 mmHg LV V1 mean PG 3.3 mmHg LV V1 max 126.3 cm/sec LV V1 mean 83.0 cm/sec LV V1 VTI 30.4 cm SV(Ao) 1154.8 ml SI(Ao) 435.8 ml/m\S\2 SV(LVOT) 121.3 ml SI(LVOT) 45.8 ml/m\S\2 PA V2 max 90.2 cm/sec PA max PG 3.3 mmHg
[2017-04-11] MEDS ORDERED: VANCOMYCIN TROUGH ONE (21:30)
--- NOTE | 2017-04-11 21:47 | Family Medicine Progress Note ---
Progress Note Date of Service Apr 11, 2017. Subjective Pt evaluation today including: conversation w/ patient, physical exam, chart review, lab review Pain: moderate, left leg Voiding: no voiding problems Called by nurse for pain control, that tylenol not enough. Pt states that it feels like it's burning, more painful than yesterday. Constitutional: + fever, + chills, + sweats Respiratory: No shortness of breath Cardiovascular: No chest pain Abdomen: No pain Skin: + see HPI Objective Vital Signs Date Time Temp Pulse Resp B/P (MAP) Pulse Ox O2 Delivery O2 Flow Rate FiO2 04/11/17 20:00 Nasal Cannula 2.0 04/11/17 19:27 37.6 75 20 110/68 (82) 91 Nasal Cannula 2.0 04/11/17 16:00 Nasal Cannula 2.0 04/11/17 15:17 37.7 76 18 131/79 (96) 96 Nasal Cannula 2.0 04/11/17 12:01 94 Nasal Cannula 2.0 04/11/17 11:51 36.6 70 20 110/73 (85) 93 Nasal Cannula 2.0 04/11/17 08:00 94 Nasal Cannula 2.0 04/11/17 07:38 37.2 93 18 104/67 (79) 93 Nasal Cannula 2.0 93 04/11/17 04:05 37.1 75 18 99/67 (78) 93 Nasal Cannula 2.0 04/11/17 04:00 Nasal Cannula 2.0 04/10/17 23:59 Nasal Cannula 2.0 04/10/17 23:25 37.8 85 20 119/63 (81) 95 Nasal Cannula 2.0 Physical Exam General Appearance: WD/WN, no apparent distress, + obese Eyes: normal inspection, EOMI Neck: supple Respiratory/Chest: lungs clear, normal breath sounds, no respiratory distress Cardiovascular: regular rate, rhythm, no gallop, no JVD, no murmur Abdomen: normal bowel sounds, non tender, soft Extremities: + inflammation (clear erythematous border circumventing LT ankle and calf area. Bandage on RT heel. Cracked dry feet. Onychomycosis.) Neurologic/Psychiatric: alert, normal mood/affect Assessment and Plan 61M admitted for meeting sepsis criteria, sudden onset of fever and chillls while en route to [facility] from [place], on the road for 2 days. 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 Weakness, brought to ED in ambulance. 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 Brother, living, kidney dz s/p nephrectomy. Sepsis of unclear etiology with bacteremia, group C beta strep, sensitivities pending Hypotension (per EMS SBP in 60s), fever (38.8 on admission), LAC+ was 3, now 2. BP improving, LAC trending down on second draw. Fever persists 37.8. Possibly from cellulitis or pneumonia (CXR shows b/l pleural effusions). Pt denies SOB, cough, diarrhea or sick contacts. Will control fever, gently hydrate. Continue Vanc and Zosyn. Acute respiratory failure CXR showed b/l pleural effusions. Pt denies cough or shortness of breath per se , although complains of weakness on admission. 88 on RA, 91-96 on 2L. Follow pulse ox, s/s. CXR x2 shows no pleural effusions. Diastolic CHF ECHO shows Ejection Fraction = 60-65%. Diastolic dysfunction, Grade II No WMA, no valvular abnormalities except for mild Ao regurg. Trace aortic regurgitation. Moderate aortic stenosis. Trace tricuspid regurgitation. IVF stopped. On O2. 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 Likely 2/2 sepsis and hypoperfusion of kidneys, on background of chronic uncontrolled diabetes. Sig FH for renal disease: Pt's brother has had a nephrectomy (reason unknown). Will follow Call Centre Supervisor Renally dosed abx, adequately hydrate on IVF. LT Leg cellulitis, edema Per pt is a chronic issue. Apparently per admission note, pt has worn the same shoes for 10+ years. Pt applies a lotion (not rx, unknown) every other night, for dryness. Pain in lower LT leg is more than usual, per pt. Venous U/S performed today (04/17) neg for DVT, however positive for LT inguinal lymphadenopathy. Received Levaquin, Vanc and Zosyn in ED. On Vanc and Zosyn now. Following size of lesion - persistent pain. Ordered percocet, then also oxycodone. Pain controlled for now. Breaks in skin, heels b/l Wound care consult in place. Bandage on LT heel in place. New diagnosis of DM II A1C 7.1 Per pt, last saw PCP in [place] 6 months ago, with no mention of diabetes. Will need diabetic education, ISS BSG checks. Pelvic adenopathy Per radiology, f/u repeat in 6 mos to follow. Likely reactive changes due to lower leg cellulitis. Hepatic steatosis Noted on abd CT. H/o alcohol use. LFT wnl Recommend dietary change, low fat. Onychomycosis In setting of diabetes, predisposition to chronic infections of the extremities and sig FH for leg amputation warrants attention, especially with PCP in [place]. Will try to order podiatry to see him here while inpatient. PPX: Heparin Code: FULL Dispo: Tele. Not recommended for him to drive him and his truck back to [place] on his own for safety reasons. Discussed his coming to get him, pt verbalized understanding. Continued [facility] stay due to: fever, inadequate oral pain control, multiple IV medications needed Discharge planning: home Resident Tracking Resident Involvement: Resident Care Provided Care Provided: Adult Hospital Medicine
[2017-04-12] VITALS (9 sets, daily range): BP systolic 108–134; BP diastolic 65–81; PULSE 67–79; TEMP 36.8–37.2; O2SAT 90–95
[2017-04-12] MEDS: OXYCODONE HCL IR 5 MG TAB (IMMEDIATE RELEASE) PO PRN ×2 (02:42→07:48)
[2017-04-12] MEDS: LEVOTHYROXINE 200 MCG TAB PO SCH (05:42)
[2017-04-12] MEDS: INSULIN ASPART 100 UNITS/ML 3 ML PEN SC SCH ×4 (07:00→21:51)
[2017-04-12 07:07] LABS: BASO % 0.3 %; BASO ABS # 0.03 K/uL (0-0.2); COMPLETE YES; EOS % 0.4 %; HEMATOCRIT 39.7 % (42-52); IG% 0.2 %; LYMPH % 11.2 %; LYMPH ABS # 1.18 K/uL (1.2-3.4); MEAN CELL VOLUME 86.9 fL (80-100); MEAN CORPUSCULAR HEMOGLOBIN 29.3 pg (25-34); MEAN CORPUSCULAR HGB CONC 33.8 g/dl (32-36); MEAN PLATELET VOLUME 12.9 fL (7.4-10.4); MONO % 7.5 %; NEUT % 80.4 %; PLATELET COUNT 147 K/uL (130-400); RED BLOOD COUNT 4.57 M/uL (4.7-6.1); WHITE BLOOD COUNT 10.55 K/uL (4.8-10.8)
[2017-04-12 07:28] LABS: BUN/CREATININE RATIO 8.3 (10-20); CALCIUM 8.2 mg/dl (8.5-10.1); CREATININE 1.5 mg/dl (0.60-1.40); POTASSIUM 4.1 mmol/L (3.5-5.1)
[2017-04-12] MEDS: PIPERACILL/TAZOBAC IV 4.5 GM in DEXTROSE 5% 100ML 100 ML IV SCH (07:45)
[2017-04-12] MEDS: HEPARIN SOD 5000 UNIT/0.5 ML CARP SQ SCH ×2 (07:50→21:58)
[2017-04-12] MEDS: VANCOMYCIN INJ 1,750 MG in SODIUM CHLORIDE 0.9% 500ML 500 ML IV SCH (10:28)
[2017-04-12] MEDS ORDERED: TRAMADOL HCL 50 MG TAB PO PRN (16:15)
--- NOTE | 2017-04-12 17:57 | Medical Student: [facility] ---
Med Student Progress Note Date of Service Apr 12, 2017. Subjective Pt evaluation today including: conversation w/ patient, conversation w/ family , physical exam, chart review, lab review, review of studies Pt notes that he is feeling better today. Still has pain in the LLE, but the oxycodone keeps it well controlled. Continues to eat well. Afebrile since yesterday evening. Notes he does have some diaphoretic periods. Repeat blood cultures are negative. EKG significant for Grade II LV diastolic dysfunction. Review of Systems Constitutional: + fever, + sweats, No chills, No weakness ENT: No hearing loss, No nasal symptoms, No sore throat Respiratory: No cough, No sputum, No wheezing, No shortness of breath Cardiac: No chest pain, No palpitations Abdomen: No pain, No nausea, No vomiting, No diarrhea, No constipation Musculoskeletal: No joint pain, No calf pain Male : No dysuria, No urinary frequency Skin: + rash, + color change (erythema of LLE has receded. Still red and warm to touch. Discomfort on palpation improved. ) Objective Vital Signs Date Time Temp Pulse Resp B/P (MAP) Pulse Ox O2 Delivery O2 Flow Rate FiO2 04/12/17 16:05 36.8 67 18 134/81 (98) 94 Nasal Cannula 2.0 04/12/17 16:01 36.9 69 20 91 2.0 04/12/17 15:36 36.8 70 20 118/74 (89) 93 Nasal Cannula 2.0 04/12/17 12:15 36.9 69 20 125/75 (92) 91 Nasal Cannula 2.0 04/12/17 12:00 94 Nasal Cannula 2.0 04/12/17 08:00 94 Nasal Cannula 2.0 04/12/17 07:32 37.2 77 20 129/81 (97) 90 Nasal Cannula 2.0 04/12/17 04:00 Nasal Cannula 2.0 04/12/17 04:00 37.2 79 18 108/67 (81) 92 Nasal Cannula 2.0 04/12/17 00:00 Nasal Cannula 2.0 04/11/17 20:00 Nasal Cannula 2.0 04/11/17 19:27 37.6 75 20 110/68 (82) 91 Nasal Cannula 2.0 Physical Exam General Appearance: WD/WN, no apparent distress, + obese ENT: hearing grossly normal, pharynx normal Neck: supple, no JVD Respiratory/Chest: lungs clear, normal breath sounds, no respiratory distress, no accessory muscle use Cardiovascular: regular rate, rhythm, no murmur Abdomen: normal bowel sounds, non tender, soft Extremities: no calf tenderness, + inflammation (erythematous region improved today. ), + pertinent finding (LLE tender, erythematous. ) Neurologic/Psychiatric: alert, normal mood/affect, oriented x 3 Skin: normal color, no rash (other than LLE cellulitis.) Laboratory Results Last 24 Hours Test 04/11/17 20:14 04/11/17 21:35 04/12/17 06:27 04/12/17 07:16 Bedside Glucose 137 mg/dl 120 mg/dl Vancomycin Level Trough 17.7 mcg/ml White Blood Count 10.55 K/uL Red Blood Count 4.57 M/uL Hemoglobin 13.4 g/dL Hematocrit 39.7 % Mean Corpuscular Volume 86.9 fL Mean Corpuscular Hemoglobin 29.3 pg Mean Corpuscular Hemoglobin Concent 33.8 g/dl Platelet Count 147 K/uL Mean Platelet Volume 12.9 fL Neutrophils (%) (Auto) 80.4 % Lymphocytes (%) (Auto) 11.2 % Monocytes (%) (Auto) 7.5 % Eosinophils (%) (Auto) 0.4 % Basophils (%) (Auto) 0.3 % Neutrophils # (Auto) 8.49 K/uL Lymphocytes # (Auto) 1.18 K/uL Monocytes # (Auto) 0.79 K/uL Eosinophils # (Auto) 0.04 K/uL Basophils # (Auto) 0.03 K/uL RDW Standard Deviation 45.2 fL RDW Coefficient of Variation 14.1 % Immature Granulocyte % (Auto) 0.2 % Immature Granulocyte # (Auto) 0.02 K/uL Sodium Level 136 mmol/L Potassium Level 4.1 mmol/L Chloride Level 101 mmol/L Carbon Dioxide Level 31 mmol/L Anion Gap 4.0 mmol/L Blood Urea Nitrogen 13 mg/dl Creatinine 1.50 mg/dl Est Creatinine Clear Calc Drug Dose 78.0 ml/min Estimated GFR () 57.0 Estimated GFR (Non- 49.2 BUN/Creatinine Ratio 8.3 Random Glucose 127 mg/dl Calcium Level 8.2 mg/dl Test 04/12/17 11:00 04/12/17 16:35 Bedside Glucose 127 mg/dl 106 mg/dl Assessment and Plan Assessment and Plan: Pt is 61 yo male who presented to ED with sepsis and LE edema and cellulitis. Lower Leg Cellulitis and Edema -Vanc and Zosyn dc'd. Keflex 50 mg TID PO ordered. -Blood culture growing Group C Beta Strep. -Urine Cx likely contaminated with 3+ organisms. -Doppler of Bilateral LE negative for DVT -Wound care for Right heal wound. -Continue to monitor L LE cellulitis. - continues to improve. Will start PO abx tonight and monitor leg tomorrow. -Dc'd Oxycodone 5mg. Ultram PO available PRN for pain. Severe Sepsis - RESOLVED. -WBC - 19.91 on admission, down to 10.35 today. Leukocytosis resolved. -RR - 20 on admission, 20 today. -HR - 110 on admission, down to 70s today -Temp: 38.8 max. Afebrile 12+ hours now. -Lactic Acidosis on admission, not repeated -Source: LE cellulitis Acute Hypoxia Respiratory Failure -New O2 requirement (NC) on admission -Will perform echo to rule out cardiac cause. Cardiac cause not evident on echo. -Grade II LV diastolic dysfxn present. WIll suggest outpt Cardiac follow-up. ? JOE -Cr is high at 1.6. Baseline unknown. Continues at 1.5 -Unknown if high dt hypotension or underlying CKD. -UA unremarkable for significant proteinuria. -PRP daily continue to trend Cr. -Nephrology consult. S/S of Fluid Overload - bilateral LE 2+ pitting edema and Pleural Effusions present on CXR -RESOLVED. HypoK, HypoMG - RESOLVED. -Continue to follow lytes. Hypothyroidism -Continue home dose of synthroid, 200 mcg daily -TSH WNL at 1.5 LEFT Iliac/Pelvic and inguinal Adenopathy -Identified via doppler and CT scan -Likely reactive to cellulitis -Recommend repeat CT scan in 3 months to determine stability. Hepatic Steatosis -Identified on CT scan -Encourage DM control, weight loss, statin therapy. -Discuss importance with pt. NAFISA -recommend outpt sleep study -d/w pt consequences. DVT: Heparin Dispo: Move to med/surg. Resus status: Full Resuscitation Continued [facility] stay due to: fever, inadequate oral pain control, multiple IV medications needed Discharge planning: home
--- NOTE | 2017-04-12 19:13 | Family Medicine Progress Note ---
Progress Note Date of Service Apr 12, 2017. Subjective Pt evaluation today including: conversation w/ patient, conversation w/ family , physical exam, chart review, lab review Pain: 4-12/09 Voiding: no voiding problems Pt laying in bed upon interview, c/o of pain in LLE 10/09. Also c/o sweating overnight, but otherwise comfortable. Denies chest pain, SOB, n/v/d. Pt's "Aury" is at bedside today, discussed admission and answered pts questions. Constitutional: + fever, + sweats Respiratory: No cough, No sputum Cardiovascular: No chest pain, No palpitations Abdomen: No pain Musculoskeletal: + see HPI Skin: + see HPI Objective Vital Signs Date Time Temp Pulse Resp B/P (MAP) Pulse Ox O2 Delivery O2 Flow Rate FiO2 04/12/17 16:05 36.8 67 18 134/81 (98) 94 Nasal Cannula 2.0 04/12/17 16:01 36.9 69 20 91 2.0 04/12/17 15:36 36.8 70 20 118/74 (89) 93 Nasal Cannula 2.0 04/12/17 12:15 36.9 69 20 125/75 (92) 91 Nasal Cannula 2.0 04/12/17 12:00 94 Nasal Cannula 2.0 04/12/17 08:00 94 Nasal Cannula 2.0 04/12/17 07:32 37.2 77 20 129/81 (97) 90 Nasal Cannula 2.0 04/12/17 04:00 Nasal Cannula 2.0 04/12/17 04:00 37.2 79 18 108/67 (81) 92 Nasal Cannula 2.0 04/12/17 00:00 Nasal Cannula 2.0 04/11/17 20:00 Nasal Cannula 2.0 04/11/17 19:27 37.6 75 20 110/68 (82) 91 Nasal Cannula 2.0 Physical Exam General Appearance: WD/WN, no apparent distress, + obese, + pertinent finding ( diaphoretic) Respiratory/Chest: chest non-tender, lungs clear, normal breath sounds, no respiratory distress, no accessory muscle use Cardiovascular: regular rate, rhythm, no edema, no gallop Abdomen: normal bowel sounds, non tender, soft Extremities: + pertinent finding (erythema and warmth receding by 1-2cm from circumscribing line drawn 04-11.) Assessment and Plan 61M admitted for meeting sepsis criteria, sudden onset of fever and chillls while en route to [facility] from [place], on the road for 2 days. 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 Weakness, brought to ED in ambulance. 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 Brother, living, kidney dz s/p nephrectomy. Sepsis of unclear etiology with bacteremia, group C beta strep, sensitivities pending Hypotension (per EMS SBP in 60s), fever (38.8 on admission), LAC+ was 3, now 2. BP improving, LAC trending down on second draw. Fever persists 37.8. Possibly from cellulitis or pneumonia (CXR shows b/l pleural effusions). Pt denies SOB, cough, diarrhea or sick contacts. Will control fever, gently hydrate. DC Vanc and Zosyn. Switch to PO Keflex. Acute respiratory failure CXR showed b/l pleural effusions. Pt denies cough or shortness of breath per se , although complains of weakness on admission. 88 on RA initially. 92-94 on 2L. Follow pulse ox, s/s. Consequent CXR x2 shows no pleural effusions. Diastolic CHF ECHO shows Ejection Fraction = 60-65%. Diastolic dysfunction, Grade II. Will need f/u with cardiology outpatient. No WMA, no valvular abnormalities except for mild Ao regurg. Trace aortic regurgitation. Moderate aortic stenosis. Trace tricuspid regurgitation. IVF stopped. On O2. 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 Likely 2/2 sepsis and hypoperfusion of kidneys, on background of chronic uncontrolled diabetes. Sig FH for renal disease: Pt's brother has had a nephrectomy (reason unknown). Will follow Status Controller. Nephro consult. Renally dosed abx, adequately hydrate on IVF. LT Leg cellulitis, edema Stable. Per pt is a chronic issue. Apparently per admission note, pt has worn the same shoes for 10+ years. Pt applies a lotion (not rx, unknown) every other night, for dryness. Pain in lower LT leg is more than usual, per pt. Venous U/S performed today (04/17) neg for DVT, however positive for LT inguinal lymphadenopathy. Received Levaquin, Vanc and Zosyn in ED. On Vanc and Zosyn now. Following size of lesion - persistent pain. Ordered percocet, then also oxycodone. Pain controlled for now. Breaks in skin, heels b/l Wound care consult in place. Bandage on LT heel in place. Improving New diagnosis of DM II A1C 7.1 Per pt, last saw PCP in [place] 6 months ago, with no mention of diabetes. Diabetic education, ISS BSG checks. Protein +1 on UA. On discharge, Recommend following up in future 24 hour collection in outpt follow up. Pelvic adenopathy Per radiology, f/u repeat in 6 mos to follow. Likely reactive changes due to lower leg cellulitis. Hepatic steatosis Noted on abd CT. H/o alcohol use. LFT wnl Recommend dietary change, low fat. Onychomycosis In setting of diabetes, predisposition to chronic infections of the extremities and sig FH for leg amputation warrants attention, especially with PCP in [place]. Will try to order podiatry to see him here while inpatient. PPX: Heparin Code: FULL Dispo: Tele. Not recommended for him to drive him and his truck back to [place] on his own for safety reasons. "Aury" here from [place]. Continued [facility] stay due to: fever, abnormal vital signs, multiple IV medications needed Discharge planning: home Resident Tracking Resident Involvement: Resident Care Provided Care Provided: Adult Hospital Medicine
[2017-04-12] MEDS: CEPHALEXIN MONOHYDRATE 500 MG CAP PO SCH (21:52)
[2017-04-13] MEDS: LEVOTHYROXINE 200 MCG TAB PO SCH (05:59)
[2017-04-13] MEDS: CEPHALEXIN MONOHYDRATE 500 MG CAP PO SCH ×2 (05:59→13:41)
[2017-04-13 06:23] LABS: BASO % 0.3 %; BASO ABS # 0.03 K/uL (0-0.2); COMPLETE YES; EOS % 0.6 %; HEMATOCRIT 40.3 % (42-52); IG% 0.6 %; LYMPH % 11.9 %; LYMPH ABS # 1.19 K/uL (1.2-3.4); MEAN CELL VOLUME 86.7 fL (80-100); MEAN CORPUSCULAR HEMOGLOBIN 29.7 pg (25-34); MEAN CORPUSCULAR HGB CONC 34.2 g/dl (32-36); MEAN PLATELET VOLUME 12.7 fL (7.4-10.4); MONO % 6.7 %; NEUT % 79.9 %; PLATELET COUNT 182 K/uL (130-400); RED BLOOD COUNT 4.65 M/uL (4.7-6.1); WHITE BLOOD COUNT 9.99 K/uL (4.8-10.8)
[2017-04-13 06:54] LABS: BUN/CREATININE RATIO 10.2 (10-20); CALCIUM 8.7 mg/dl (8.5-10.1); CREATININE 1.2 mg/dl (0.60-1.40); POTASSIUM 3.9 mmol/L (3.5-5.1)
[2017-04-13 07:21] VITALS: BP 106/64; PULSE 73; TEMP 37; O2SAT 94
[2017-04-13] MEDS: HEPARIN SOD 5000 UNIT/0.5 ML CARP SQ SCH (08:31)
[2017-04-13] MEDS: INSULIN ASPART 100 UNITS/ML 3 ML PEN SC SCH ×3 (08:31→11:00)
[2017-04-13 12:23] VITALS: BP 106/64; PULSE 73; TEMP 37; O2SAT 94
[2017-04-13] MEDS ORDERED: KFL500 PO (13:47)
[2017-04-13] MEDS ORDERED: ACET-1256 PO (13:47)
[2017-04-13] MEDS ORDERED: GLC500 PO (13:48)
--- NOTE | 2017-04-13 13:57 | Discharge Instructions ---
Discharge Instructions Date of Service Apr 13, 2017. Admission Reason for Admission: Cellulitis Of Left Foot, Sepsis Discharge Discharge Diagnosis / Problem: Cellulitis of left foot, sepsis, diabetes mellitus type II Discharge Goals Goal(s): Decrease discomfort, Improve function, Improve disease control, Improve nutritional status, Learn about illness Activity Recommendations Activity Limitations: as noted below Lifting Limitations: gradually increase as tolerated Exercise/Sports Limitations: as tolerated May Resume Sexual Activity: when tolerated Shower/Bathe: no limitations . Instructions / Follow-Up Instructions / Follow-Up You were admitted to [facility] for a severe infection of your left lower leg, and also sepsis. We have been treating this with antibiotics mainly, and also nutritional and pain support. I have printed out prescriptions for extra strength tylenol for pain, as well as your antibiotic. Please take these as prescribed. While you were here, we also found that you have Diabetes Mellitus Type 2. I have printed a script for Metformin pills which will help, as well as diet and exercise. You received education and materials regarding your new diagnosis. I strongly recommend you see your primary care physician within the next month to discuss this hospital stay and steps forward for managing your diabetes. I have also included prescriptions for strips, meter, and lancets which will be necessary for you to monitor your blood sugars, as discussed. We also noted on the ultrasound of your heart stage 2 diastolic congestive heart failure. We recommend you discuss this finding with your physician, and then follow up with a shank boner as well, as this can get worse over time so it is best to be monitored. Thank you for allowing us to participate in your care, have a safe trip back home. Current Hospital Diet Patient's current hospital diet: AHA Diet (Heart Healthy), Diabetes Type 2 Diet Discharge Diet Recommended Diet: AHA Diet (Heart Healthy), Diabetes Type 2 Diet Fluid Restriction: None Pending Studies Studies pending at discharge: no Laboratory Results Hemoglobin A1c Test 04/10/17 07:24 Range/Units Estimated Average Glucose 157 mg/dl Hemoglobin A1c 7.1 H 4.5-5.6 % Lipid Panel Test 04/11/17 07:07 Range/Units Triglycerides Level 240 H 0-150 mg/dl Cholesterol Level 161 0-200 mg/dl HDL Cholesterol 21 mg/dl Cholesterol/HDL Ratio 7.7 LDL Cholesterol, Calculated 92 mg/dl Medical Emergencies . Who to Call and When: Medical Emergencies: If at any time you feel your situation is an emergency, please call 911 immediately. . Non-Emergent Contact Non-Emergency issues call your: Primary Care Provider . . "Provider Documentation" section prepared by Yenifer Arellano. . VTE Core Measure Inpt VTE Proph given/why not?: Unfractionated heparin SQ Resident Tracking Resident Involvement: Resident Care Provided Care Provided: Adult Hospital Medicine
--- NOTE | 2017-04-13 14:11 | Medical Student: [facility] ---
Discharge Summary Admission Date: Apr 09, 2017 at 21:16 Discharge Date: Apr 13, 2017 Discharge Disposition: Home Principal Diagnosis: Severe Sepsis secondary to Lower Extremity Cellulitis Problems/Secondary Diagnoses: Acute Hypoxia Respiratory Failure, JOE, HypoK, HypoMG, Hypothyroidism Medications: Home Medications -Synthroid 200 mcgs PO daily New Medications Metformin 500 mg every day (for diabetes) Keflex 50 mg TID (antibiotic for cellulitis) Ultram 50 mg q 4 hrs PRN pain (pain medication) Discharge Exam Review of Systems: Constitutional: No fever, No chills, No sweats, No weight loss, No weakness ENT: No hearing loss, No nasal symptoms, No sore throat Respiratory: No cough, No sputum, No wheezing, No shortness of breath Cardiovascular: No chest pain Abdomen: No pain, No nausea, No vomiting, No diarrhea, No constipation Musculoskeletal: + calf pain (pain on LLE from cellulitis), No muscle pain Genitourinary - Male: No dysuria, No urinary frequency Neurologic: No numbness/tingling Integumentary: No rash, No itch Physical Exam: General Appearance: WD/WN, no apparent distress (sitting up in chair), + obese Eyes: normal inspection, EOMI, sclerae normal ENT: hearing grossly normal, pharynx normal Neck: supple, no adenopathy Respiratory/Chest: lungs clear, normal breath sounds, no respiratory distress Cardiovascular: regular rate, rhythm, no murmur Abdomen / GI: non tender, soft, no organomegaly Extremities: no pedal edema, + pertinent finding (LLE with improved erythema. Slight swelling noted as well. Appears much improved. ) Neurologic/Psychiatric: alert, normal mood/affect, oriented x 3 Skin: warm/dry Hospital Course Pt was admitted on 04/09/2017 with severe sepsis with JOE secondary to LE cellulitis. Initial blood cultures were positive for Group C beta strep. Repeat blood cultures and urine cultures have been negative. His kidney function is back to baseline. His cellulitis and leukocytosis has responded well on Keflex. While in pt, pt's A1c was found to be 7.1, thus a diagnosis of T2DM. CT scans were also remarkable for fatty liver and left inguinal and pelvic lymph nodes. His echocardiogram was also significant for Grade II LV diastolic dysfunction. See report details below. ABDOMEN AND PELVIS CT WITHOUT CONTRAST CT DOSE: 1656.69 mGy.cm HISTORY: septic shock, left lower quadrant abdominal pain. TECHNIQUE: Multiaxial CT images of the abdomen and pelvis were performed without contrast. A dose lowering technique was utilized adhering to the principles of ALARA. COMPARISON STUDY: None. FINDINGS: A few bibasilar linear densities consistent with subsegmental atelectasis. No pneumoperitoneum. No pneumatosis. Old, healed bilateral rib fractures. Mild motion artifact. Hepatic steatosis. The unenhanced gallbladder, spleen, adrenal glands, and pancreas are unremarkable. No renal or ureteral stones. No hydronephrosis. No retroperitoneal lymphadenopathy. Normal bladder. Suboptimal evaluation for bowel pathology due to the lack of intravenous and oral contrast. However, there is no definite bowel wall thickening or obstruction. Normal appendix. A few mildly enlarged left pelvic sidewall/iliac lymph nodes. Dominant lymph node measures 2.4 x 1.2 cm. IMPRESSION: 1. Suboptimal evaluation for bowel pathology due to the lack of intravenous and oral contrast. However, there is no definite bowel wall thickening or obstruction. 2. Normal appendix. 3. No renal stones. No hydronephrosis. 4. A few mildly enlarged left iliac/pelvic sidewall lymph nodes. These are of uncertain clinical significance. Six-month follow-up can be performed to ensure stability. 5. Hepatic steatosis. Electronically signed by: Kimo Rice M.D. 04/09/2017 8:18 PM Dictated Date/Time: 04/09/2017 8:09 PM Interpretation Summary * Name: MOHAN EDWARDS Study Date: 04/11/2017 07:36 AM BP: 99/67 mmHg * Patient Location: [facility]\S\1 HR: 77 * : 1955 (M/d/yyyy) Gender: Male Height: 74 in * Age: 61 yrs Ethnicity: CA Weight: 319 lb * Ordering Physician: Yenifer Arellano * Referring Physician: Self, Referred * Performed By: Dari Stout RCS * * Reason For Study: CHF * BSA: 2.7 m2 * Normal left ventricular systolic function. * Grade 2 left ventricular diastolic dysfunction. * Normal right ventricular systolic function. * Mild left atrial dilatation. * Mild aortic root and ascending aortic dilatation. * Trace aortic regurgitation. * Moderate aortic stenosis. * Trace tricuspid regurgitation. * The study was technically difficult. Procedure Details * A complete two-dimensional transthoracic echocardiogram was performed (2D, M- mode, Doppler and color flow Doppler). Total Time Spent: Greater than 30 minutes This includes examination of the patient, discharge planning, medication reconciliation, and communication with other providers. Discharge Instructions Please refer to the electronic Patient Visit Report (Discharge Instructions) for additional information. Follow-Up You were admitted with Group C Beta Strep infection of your lower leg ( cellulitis). You will need to take your antibiotics (keflex) as prescribed until all medications are gone, even if you are feeling better. While you were in the hospital you were diagnosed with Diabetes. Your hemaglobin A1c level was 7.1 You will begin taking metformin for this. Take it every day. It is important to follow closely with a family doctor as diabetes can have many serious complications. People with diabetes should have yearly appointments with an eye doctor and foot doctor to make sure diabetes is not affecting the eyes and feet. In addition, you should also follow-up with your family doctor about these other medical conditions that were found while you were here. -You have a fatty liver. This can lead to liver disease. It is important for someone to follow this. -You likely have Obstructive Sleep Apnea. A sleep study will confirm this and help you treat it to prevent serious complications. -Enlarged lymph nodes were found in your left inguinal region and pelvis. You should obtain another CT scan of the Pelvis in 3 months to make sure that they are no longer enlarged. -The study of your heart, the echocardiogram, also found an issue with your heart that could progress. It is important to inform your family doctor of this. It is called Grade II left ventricular diastolic dysfunction. Take care of yourself and drive safe on the road!
[2017-04-13] MEDS ORDERED: METFORMIN HCL 500 MG TAB PO SCH (16:30)
--- NOTE | 2017-04-13 22:32 | Discharge Summary ---
Discharge Summary Date of Service Apr 13, 2017. Discharge Summary Admission Date: Apr 09, 2017 at 21:16 Discharge Date: Apr 13, 2017 Discharge Disposition: Home Principal Diagnosis: Cellulitis, Sepsis Medication Reconciliation New Medications: Acetaminophen (Tylenol) 500 Mg Tab 1 TAB PO Q8 for 3 Days, #10 TAB Cephalexin Monohydrate (Cephalexin) 500 Mg Cap 500 MG PO Q8 for 14 Days, #42 CAP Metformin HCl (Metformin HCl) 500 Mg Tab 500 MG PO DAILYBD for 30 Days, #60 TAB Continued Medications: Levothyroxine Sodium (Synthroid) 200 Mcg Tab 200 MCG PO QAM [Cholesterol] () 1 TAB PO DAILY Discharge Exam Review of Systems: Constitutional: No fever, No chills, No sweats Respiratory: No cough, No sputum Cardiovascular: + edema, No chest pain, No orthopnea Abdomen: No pain, No nausea, No vomiting Musculoskeletal: + swelling (swelling and redness of LLE) Genitourinary - Male: No dysuria Physical Exam: General Appearance: WD/WN, no apparent distress, + obese Eyes: normal inspection, EOMI Neck: + pertinent finding (large neck circumference) Respiratory/Chest: chest non-tender, lungs clear, normal breath sounds, no respiratory distress, no accessory muscle use Cardiovascular: regular rate, rhythm, no gallop, no JVD, no murmur, normal peripheral pulses Abdomen / GI: normal bowel sounds, non tender, soft Extremities: + pertinent finding (erythema receding by 2-3 cm from line drawn on hospital day 2) Neurologic/Psychiatric: alert, normal mood/affect, oriented x 3 Skin: warm/dry Hospital Course 61M admitted for meeting sepsis criteria, sudden onset of fever and chillls while en route to [facility] from [place], on the road for 2 days. 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 Weakness, brought to ED in ambulance. 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 Brother, living, kidney dz s/p nephrectomy. Sepsis of unclear etiology with bacteremia, group C beta strep Hypotension (per EMS SBP in 60s), fever (38.8 on admission), LAC+ 3, 2. BP improving, LAC trending down on second draw. Fever persists 37.8. Possibly from cellulitis or pneumonia (CXR shows b/l pleural effusions). Pt denies SOB, cough, diarrhea or sick contacts. Controlled fever, gently hydrated. DC Vanc and Zosyn. Switch to PO Keflex on discharge. Acute respiratory failure CXR showed b/l pleural effusions. Pt denies cough or shortness of breath per se , although complains of weakness on admission. 88 on RA initially. 92-94 on 2L. Follow pulse ox, s/s. Consequent CXR x2 shows no pleural effusions. Resolved. Diastolic CHF ECHO shows Ejection Fraction = 60-65%. Diastolic dysfunction, Grade II. Will need f/u with cardiology outpatient. No WMA, no valvular abnormalities except for mild Ao regurg. Trace aortic regurgitation. Moderate aortic stenosis. Trace tricuspid regurgitation. IVF stopped. On O2. Recommend follow up with trimmer sorter on discharge. JOE Sebd Teacher on admission 1.4, now 1.5. Likely 2/2 sepsis and hypoperfusion of kidneys, on background of chronic uncontrolled diabetes. Sig FH for renal disease: Pt's brother has had a nephrectomy (reason unknown). Will follow Sebd Teacher. Nephro consult. Renally dosed abx, adequately hydrated on IVF. Sebd Teacher 1.2 on discharge. Recommend follow up with PCP. LT Leg cellulitis, edema Stable. Per pt is a chronic issue. Apparently per admission note, pt has worn the same shoes for 10+ years. Pt applies a lotion (not rx, unknown) every other night, for dryness. Pain in lower LT leg is more than usual, per pt. Venous U/S performed today (04/17) neg for DVT, however positive for LT inguinal lymphadenopathy. Received Levaquin, Vanc and Zosyn in ED. On Vanc and Zosyn now. Dc'ed on Keflex , tylenol 500. Following size of lesion - persistent pain. Ordered percocet, then also oxycodone. Pain controlled for now. Breaks in skin, heels b/l Wound care consult in place. Bandage on LT heel in place. Improving New diagnosis of DM II A1C 7.1 Per pt, last saw PCP in [place] 6 months ago, with no mention of diabetes. Diabetic education, ISS BSG checks. Protein +1 on UA. On discharge, Recommend following up in future 24 hour collection in outpt follow up. Dec'ed on Metformin 500 BID, lancets, strips and meter, to check BSG once/day. Pelvic adenopathy Per radiology, f/u repeat in 6 mos to follow. Likely reactive changes due to lower leg cellulitis. Hepatic steatosis Noted on abd CT. H/o alcohol use. LFT wnl Recommend dietary change, low fat. Onychomycosis In setting of diabetes, predisposition to chronic infections of the extremities and sig FH for leg amputation warrants attention, especially with PCP in [place]. Recommend podiatry to see him in outpatient. PPX: Heparin Code: FULL drove in from [place] to come and pick him up. Total Time Spent: Greater than 30 minutes This includes examination of the patient, discharge planning, medication reconciliation, and communication with other providers. Discharge Instructions Please refer to the electronic Patient Visit Report (Discharge Instructions) for additional information. Resident Tracking Resident Involvement: Resident Care Provided Care Provided: Adult Hospital Medicine
== END 2017-04-13 15:00 | disposition home or self-care (01) | DRG 871 ==
LOC: EDBD 18:31 → C.EDC 18:33 → C.2T 21:16 → EDBEDREQSVC 21:19 → ENRESERV 22:06 → C.MS4W 04-12 16:08
PROVIDERS: ADMIT Internal Medicine; ATTEND Hospitalist
DX: A41.9 Sepsis, unspecified organism (principal); J96.00 Acute respiratory failure, unspecified whether with hypoxia or hypercapnia; L03.116 Cellulitis of left lower limb; N17.9 Acute kidney failure, unspecified; I50.30 Unspecified diastolic (congestive) heart failure; Z68.41 Body mass index [BMI] 40.0-44.9, adult; R65.20 Severe sepsis without septic shock; R60.0 Localized edema; K76.0 Fatty (change of) liver, not elsewhere classified; B35.1 Tinea unguium; N18.3 Chronic kidney disease, stage 3 (moderate); E11.22 Type 2 diabetes mellitus with diabetic chronic kidney disease; E03.9 Hypothyroidism, unspecified; E78.5 Hyperlipidemia, unspecified; Z79.899 Other long term (current) drug therapy